=== PATIENT | female | born 1990 | race Caucasian/White ===

== ENCOUNTER 2016-10-19 09:25 | Inpatient (IN) | payer MEDICAID, OTHER ==
[~2016-10-19] VITALS: Ht 160 cm; Wt 77.0 kg
[~2016-10-19 09:25] MED LIST: OLAN5TAB2 PO
[2016-10-19] MEDS ORDERED: DiphenhydrAMINE HCL 50 MG/ML VIAL IM ONE (09:45)
[2016-10-19] MEDS ORDERED: HALOPERIDOL LACTATE 5 MG/ML VIAL IM ONE (09:45)
[2016-10-19] MEDS ORDERED: LORazepam 2 MG/ML VIAL IM ONE (09:45)
[2016-10-19 10:07] LABS: BASOPHILS % (AUTO) 0.3 % (0.0-2.0); EOSINOPHILS % (AUTO) 0.8 % (1.0-6.0); HEMATOCRIT 43.2 % (36-46); HEMOGLOBIN 14.6 g/dL (12.0-16.0); LYMPHOCYTES # (AUTO) 3.2 K/uL (1.0-4.8); LYMPHOCYTES % (AUTO) 21.5 % (22.0-44.0); MEAN CORPUSCULAR HEMOGLOBIN 31.2 pg (26.0-34.0); MEAN CORPUSCULAR HGB CONC 33.8 G/dL (31.0-37.0); MEAN CORPUSCULAR VOLUME 92 fL (80-100); MONOCYTES # (AUTO) 1.3 K/uL (0.1-1.0); MONOCYTES % (AUTO) 8.5 % (2.0-9.0); NEUTROPHILS # (AUTO) 10.2 K/uL (1.8-7.7); NEUTROPHILS % (AUTO) 68.9 % (40.0-70.0); PLATELET COUNT (AUTO) 340 K/uL (150-450); RED BLOOD CELL COUNT(AUTO) 4.69 MIL/uL (4.00-5.20); RED CELL DISTRIBUTION WIDTH 13.5 % (11.5-14.5); WHITE BLOOD COUNT (AUTO) 14.7 K/uL (4.5-11.0)
[2016-10-19 10:18] LABS: ANION GAP 17 mmol/L (8-16); CALCIUM, TOTAL 9.9 mg/dL (8.8-10.5); CARBON DIOXIDE 23 mmol/L (22-29); CHLORIDE 100 mmol/L (98-107); GLOMERULAR FILTR. RATE CALC > 60 mL/min (>60); POTASSIUM 3.4 mmol/L (3.5-5.1); SODIUM SERUM 140 mmol/L (136-145); UREA NITROGEN, BLOOD 10 mg/dL (7-18)
[2016-10-19 10:24] LABS: ALANINE AMINOTRANSFERASE 37 U/L (12-78); ALBUMIN 4.3 g/dL (3.4-5.0); ASPARTATE AMINOTRANSFERASE 33 U/L (15-37); BILIRUBIN,TOTAL 0.7 mg/dL (0.1-1.0); TOTAL PROTEIN, SERUM 8.5 g/dL (6.4-8.2)
[2016-10-19] MEDS ORDERED: HALOPERIDOL 5 MG TABLET PO PRN (12:15)
[2016-10-19] MEDS ORDERED: POTASSIUM CHLORIDE 20 MEQ ER TABLET PO ONE (13:45)
[2016-10-19 14:13] VITALS: BP 104/61
[2016-10-19] MEDS ORDERED: PNEUMOCOCCAL VACCINE POLYVALENT 0.5 ML VIAL [PPSV23] IM ONE (15:15)
[2016-10-19] MEDS ORDERED: INFLUENZA VIRUS VACCINE QVS 2016-17 (3YR+)/PF 60 MCG/0.5 ML SYRINGE IM ONE (15:15)
[2016-10-19] MEDS: OLANZapine 5 MG TABLET PO SCH (17:00)
[2016-10-20] MEDS: OLANZapine 5 MG TABLET PO SCH ×2 (09:00→17:00)
[2016-10-20] MEDS: LORazepam 2 MG TABLET PO PRN (17:57)
[2016-10-20] MEDS ORDERED: IBUPROFEN 400 MG TABLET PO PRN (23:15)
[2016-10-20] MEDS ORDERED: ACETAMINOPHEN 325 MG TABLET PO PRN (23:15)
[2016-10-21 08:08] VITALS: BP 107/74
[2016-10-21] MEDS: OLANZapine 5 MG TABLET PO SCH ×2 (09:38→16:40)
[2016-10-21] MEDS: ZOLPIDEM TARTRATE 10 MG TABLET PO PRN (20:30)
[2016-10-21] MEDS: LORazepam 2 MG TABLET PO PRN (22:15)
[2016-10-22] MEDS: OLANZapine 5 MG TABLET PO SCH ×2 (09:00→16:50)
[2016-10-22] MEDS ORDERED: PALIPERIDONE PALMITATE 156 MG/ML SYRINGE IM ONE (09:00)
[2016-10-22] MEDS: LORazepam 2 MG TABLET PO PRN (17:00)
[2016-10-22 17:45] VITALS: BP 114/75
[2016-10-22] MEDS: ZOLPIDEM TARTRATE 10 MG TABLET PO PRN (21:08)
[2016-10-23] MEDS: OLANZapine 5 MG TABLET PO SCH ×2 (10:15→16:49)
[2016-10-23] MEDS: LORazepam 2 MG TABLET PO PRN ×2 (11:39→18:36)
[2016-10-23 16:33] VITALS: BP 131/78
[2016-10-24 08:16] VITALS: BP 128/77
[2016-10-24] MEDS: OLANZapine 5 MG TABLET PO SCH (08:49)
[2016-10-24 11:18] LABS: APPEARANCE,URINE CLOUDY (CLEAR); GLUCOSE, URINE (UA) NEGATIVE (NEGATIVE); KETONES,URINE NEGATIVE (NEGATIVE); LEUKOCYTE ESTERASE ,URINE MODERATE (NEGATIVE); OCCULT BLOOD,URINE NEGATIVE (NEGATIVE); PH,URINE 5.5 (5.0-8.0); PROTEIN,URINE NEGATIVE (NEGATIVE)
[2016-10-24 11:19] LABS: ADD UA MICROSCOPIC YES
[2016-10-24 11:20] LABS: RBC,URINE None Seen /HPF (0-2)
[2016-10-24 11:21] LABS: SQUAMOUS EPITHELIAL CELL,UR Few /LPF (None Seen)
== END 2016-10-24 14:45 | disposition home or self-care (01) | DRG 750 ==
LOC: EMS 09:25 → 3EC 13:38
PROVIDERS: ATTEND Psychiatry & Neurology Child & Adolescent Psychiatry
DX: F20.0 Paranoid schizophrenia (principal); F31.2 Bipolar disorder, current episode manic severe with psychotic features; J44.9 Chronic obstructive pulmonary disease, unspecified; E78.5 Hyperlipidemia, unspecified; M19.90 Unspecified osteoarthritis, unspecified site; F43.20 Adjustment disorder, unspecified; E87.6 Hypokalemia; D72.829 Elevated white blood cell count, unspecified; F15.229 Other stimulant dependence with intoxication, unspecified; Z78.1 Physical restraint status; Z28.21 Immunization not carried out because of patient refusal; Z79.899 Other long term (current) drug therapy
CPT/HCPCS: 87081; 87086; 96372; 99285; G0480; J1200; J1630; J2060

== ENCOUNTER 2016-10-28 23:15 | Inpatient (IN) | payer MEDICAID, OTHER ==
[~2016-10-28] VITALS: Ht 167.6 cm; Wt 86.4 kg
[2016-10-29] MEDS ORDERED: LORazepam 2 MG/ML VIAL IM ONE
[2016-10-29] MEDS ORDERED: DiphenhydrAMINE HCL 50 MG/ML VIAL IM ONE
[2016-10-29] MEDS ORDERED: HALOPERIDOL LACTATE 5 MG/ML VIAL IM ONE
[2016-10-29 00:50] LABS: BASOPHILS # (AUTO) 0.04 K/uL (0.00-0.20); BASOPHILS % (AUTO) 0.5 % (0.0-2.0); EOSINOPHILS # (AUTO) 0.42 K/uL (0.00-0.70); EOSINOPHILS % (AUTO) 4.69 % (1.0-6.0); HEMATOCRIT 38.1 % (36-46); HEMOGLOBIN 12.8 g/dL (12.0-16.0); LYMPHOCYTES # (AUTO) 3.8 K/uL (1.0-4.8); LYMPHOCYTES % (AUTO) 42.3 % (22.0-44.0); MEAN CORPUSCULAR HEMOGLOBIN 31.3 pg (26.0-34.0); MEAN CORPUSCULAR HGB CONC 33.7 G/dL (31.0-37.0); MEAN CORPUSCULAR VOLUME 93 fL (80-100); MONOCYTES # (AUTO) 0.8 K/uL (0.1-1.0); MONOCYTES % (AUTO) 9.1 % (2.0-9.0); NEUTROPHILS # (AUTO) 3.9 K/uL (1.8-7.7); NEUTROPHILS % (AUTO) 43.4 % (40.0-70.0); PLATELET COUNT (AUTO) 345 K/uL (150-450); RED CELL DISTRIBUTION WIDTH 13.4 % (11.5-14.5)
[2016-10-29 01:00] LABS: ANION GAP 4 mmol/L (8-16); CALCIUM, TOTAL 8.9 mg/dL (8.8-10.5); CARBON DIOXIDE 26 mmol/L (22-29); CHLORIDE 104 mmol/L (98-107); CREATININE 0.61 mg/dL (0.60-1.30); GLOMERULAR FILTR. RATE CALC > 60 mL/min (>60); POTASSIUM 3.3 mmol/L (3.5-5.1); SODIUM SERUM 134 mmol/L (136-145); UREA NITROGEN, BLOOD 9 mg/dL (7-18)
[2016-10-29 01:07] LABS: ALANINE AMINOTRANSFERASE 33 U/L (12-78); ALBUMIN 3.4 g/dL (3.4-5.0); ASPARTATE AMINOTRANSFERASE 15 U/L (15-37); BILIRUBIN,TOTAL 0.2 mg/dL (0.1-1.0); TOTAL PROTEIN, SERUM 6.8 g/dL (6.4-8.2)
[2016-10-29] MEDS ORDERED: HALOPERIDOL 5 MG TABLET PO PRN (03:15)
[2016-10-29] MEDS ORDERED: POTASSIUM CHLORIDE 20 MEQ ER TABLET PO ONE ×2 (06:45→17:30)
[2016-10-29 09:45] VITALS: BP 101/59
[2016-10-29] MEDS ORDERED: INFLUENZA VIRUS VACCINE QVS 2016-17 (3YR+)/PF 60 MCG/0.5 ML SYRINGE IM ONE (14:30)
[2016-10-29] MEDS ORDERED: PNEUMOCOCCAL VACCINE POLYVALENT 0.5 ML VIAL [PPSV23] IM ONE (14:30)
[2016-10-29] MEDS: OLANZapine 5 MG TABLET PO SCH (16:57)
[2016-10-29] MEDS ORDERED: IBUPROFEN 400 MG TABLET PO PRN (17:45)
[2016-10-29] MEDS ORDERED: ALBUTEROL SULFATE HFA 90 MCG/PUFF 8 GM INHALER IH PRN (17:45)
[2016-10-29] MEDS ORDERED: ACETAMINOPHEN 325 MG TABLET PO PRN (17:45)
[2016-10-30 05:54] VITALS: BP 102/60
[2016-10-30] MEDS: OLANZapine 5 MG TABLET PO SCH ×2 (09:00→16:21)
[2016-10-31 08:04] VITALS: BP 101/60
[2016-10-31] MEDS: OLANZapine 5 MG TABLET PO SCH ×2 (10:38→16:15)
[2016-10-31] MEDS: LORazepam 2 MG TABLET PO PRN (18:45)
[2016-11-01 09:02] VITALS: BP 79/47
[2016-11-01] MEDS: OLANZapine 10 MG TABLET PO SCH ×2 (09:56→17:49)
[2016-11-01] MEDS: LORazepam 2 MG TABLET PO PRN (17:49)
[2016-11-01] MEDS: ZOLPIDEM TARTRATE 10 MG TABLET PO PRN (20:47)
[2016-11-02 00:03] VITALS: BP 101/60
[2016-11-02] MEDS: OLANZapine 10 MG TABLET PO SCH ×2 (09:00→18:17)
[2016-11-02 16:14] VITALS: BP 115/68
[2016-11-02] MEDS: LORazepam 2 MG TABLET PO PRN ×2 (16:37→20:59)
[2016-11-02] MEDS: ZOLPIDEM TARTRATE 10 MG TABLET PO PRN (20:59)
[2016-11-03 08:34] VITALS: BP 112/66
[2016-11-03] MEDS: LORazepam 2 MG TABLET PO PRN ×2 (08:55→20:02)
[2016-11-03] MEDS: OLANZapine 10 MG TABLET PO SCH ×2 (08:55→16:12)
[2016-11-03 15:59] VITALS: BP 114/62
[2016-11-03 16:16] VITALS: BP 114/62
[2016-11-03] MEDS: ZOLPIDEM TARTRATE 10 MG TABLET PO PRN (20:34)
[2016-11-04 08:45] VITALS: BP 110/71
[2016-11-04] MEDS: OLANZapine 10 MG TABLET PO SCH ×2 (09:23→16:21)
[2016-11-04 16:16] VITALS: BP 141/69
[2016-11-04] MEDS: LORazepam 2 MG TABLET PO PRN (16:37)
[2016-11-05 08:27] VITALS: BP 109/68
[2016-11-05] MEDS: OLANZapine 10 MG TABLET PO SCH ×2 (09:21→16:01)
[2016-11-05] MEDS: LORazepam 2 MG TABLET PO PRN ×2 (12:41→19:53)
[2016-11-05 16:00] VITALS: BP 104/62
[2016-11-05] MEDS: ZOLPIDEM TARTRATE 10 MG TABLET PO PRN (21:02)
[2016-11-06 08:34] VITALS: BP 116/74
[2016-11-06] MEDS: OLANZapine 10 MG TABLET PO SCH ×2 (09:08→16:23)
[2016-11-06 16:20] VITALS: BP 112/80
[2016-11-06] MEDS: LORazepam 2 MG TABLET PO PRN ×2 (16:23→22:56)
[2016-11-06 16:39] VITALS: BP 100/65
[2016-11-06] MEDS: ZOLPIDEM TARTRATE 10 MG TABLET PO PRN (21:46)
[2016-11-07 08:44] VITALS: BP 110/79
[2016-11-07] MEDS: LORazepam 2 MG TABLET PO PRN (09:02)
[2016-11-07] MEDS: OLANZapine 10 MG TABLET PO SCH (09:02)
== END 2016-11-07 15:50 | disposition home or self-care (01) | DRG 753 ==
LOC: EMS 23:17 → B3A 10-29 06:31
PROVIDERS: ADMIT Psychiatry & Neurology Psychiatry; ATTEND Psychiatry & Neurology Psychiatry
DX: F31.2 Bipolar disorder, current episode manic severe with psychotic features (principal); E87.1 Hypo-osmolality and hyponatremia; E78.5 Hyperlipidemia, unspecified; E87.6 Hypokalemia; F20.9 Schizophrenia, unspecified; J44.9 Chronic obstructive pulmonary disease, unspecified; F17.210 Nicotine dependence, cigarettes, uncomplicated; M47.9 Spondylosis, unspecified; F15.90 Other stimulant use, unspecified, uncomplicated; E66.9 Obesity, unspecified; Z78.1 Physical restraint status; Z28.21 Immunization not carried out because of patient refusal; Z79.899 Other long term (current) drug therapy; Z68.30 Body mass index [BMI] 30.0-30.9, adult
CPT/HCPCS: 87081; 96372; 99285; G0480; J1200; J1630; J2060

== ENCOUNTER 2017-12-09 09:03 | Inpatient (IN) | payer MEDICAID, OTHER ==
[~2017-12-09] VITALS: Ht 172.7 cm; Wt 60.0 kg
[2017-12-09] MEDS ORDERED: DiphenhydrAMINE HCL 50 MG/ML VIAL IM ONE (09:30)
[2017-12-09] MEDS ORDERED: LORazepam 2 MG/ML VIAL IM ONE (09:30)
[2017-12-09] MEDS ORDERED: HALOPERIDOL LACTATE 5 MG/ML VIAL IM ONE (09:30)
[2017-12-09] MEDS ORDERED: ZOLPIDEM TARTRATE 10 MG TABLET PO PRN (10:15)
[2017-12-09] MEDS ORDERED: HALOPERIDOL 5 MG TABLET PO PRN (10:15)
[2017-12-09] MEDS ORDERED: LORazepam 2 MG TABLET PO PRN (10:15)
[2017-12-09 10:50] LABS: BASOPHILS % (AUTO) 0.6 % (0.0-2.0); EOSINOPHILS % (AUTO) 0.9 % (1.0-6.0); HEMATOCRIT 43.6 % (36-46); HEMOGLOBIN 14.8 g/dL (12.0-16.0); LYMPHOCYTES # (AUTO) 2.8 K/uL (1.0-4.8); LYMPHOCYTES % (AUTO) 22.3 % (22.0-44.0); MEAN CORPUSCULAR HEMOGLOBIN 31.5 pg (26.0-34.0); MEAN CORPUSCULAR HGB CONC 33.9 G/dL (31.0-37.0); MEAN CORPUSCULAR VOLUME 93 fL (80-100); MONOCYTES # (AUTO) 1.4 K/uL (0.1-1.0); NEUTROPHILS # (AUTO) 8.1 K/uL (1.8-7.7); NEUTROPHILS % (AUTO) 65.2 % (40.0-70.0); PLATELET COUNT (AUTO) 321 K/uL (150-450); RED CELL DISTRIBUTION WIDTH 13.8 % (11.5-14.5)
[2017-12-09 11:07] LABS: ANION GAP 13 mmol/L (8-16); CALCIUM, TOTAL 9.3 mg/dL (8.8-10.5); CARBON DIOXIDE 24 mmol/L (22-29); CHLORIDE 104 mmol/L (98-107); CREATININE 0.74 mg/dL (0.60-1.30); GLOMERULAR FILTR. RATE CALC > 60 mL/min (>60); GLUCOSE,RANDOM 89 mg/dL (70-110); POTASSIUM 3.2 mmol/L (3.5-5.1); SODIUM SERUM 141 mmol/L (136-145); UREA NITROGEN, BLOOD 20 mg/dL (7-18)
[2017-12-09 11:13] LABS: ALANINE AMINOTRANSFERASE 25 U/L (12-78); ALKALINE PHOSPHATASE 71 U/L (46-116); ASPARTATE AMINOTRANSFERASE 21 U/L (15-37); BILIRUBIN,TOTAL 0.8 mg/dL (0.1-1.0); TOTAL PROTEIN, SERUM 7.1 g/dL (6.4-8.2)
[2017-12-09] MEDS ORDERED: POTASSIUM CHLORIDE 10% 40 MEQ/30 ML LIQUID UDCUP PO ONE (11:15)
[2017-12-09 11:48] VITALS: BP 103/64
== END 2017-12-09 23:00 | disposition short-term general hospital (02) | DRG 753 ==
LOC: EMS 09:04 → B3A 12:01
PROVIDERS: ADMIT Psychiatry & Neurology Psychiatry; ATTEND Psychiatry & Neurology Psychiatry
DX: F31.2 Bipolar disorder, current episode manic severe with psychotic features (principal); I95.9 Hypotension, unspecified; E87.6 Hypokalemia; F17.210 Nicotine dependence, cigarettes, uncomplicated; Z79.899 Other long term (current) drug therapy
CPT/HCPCS: G0480; J1200; J1630; J2060

== ENCOUNTER 2018-10-10 00:54 | Emergency (ER) | payer MEDICAID ==
[~2018-10-10] VITALS: Ht 162.6 cm; Wt 56.4 kg
[2018-10-10] MEDS ORDERED: RISP0.5T19 PO (01:02)
[2018-10-10 01:27] LABS: BASOPHILS % (AUTO) 0.6 % (0.0-2.0); EOSINOPHILS % (AUTO) 1.1 % (1.0-6.0); HEMATOCRIT 38.6 % (36-46); HEMOGLOBIN 12.8 g/dL (12.0-16.0); LYMPHOCYTES # (AUTO) 3.3 K/uL (1.0-4.8); LYMPHOCYTES % (AUTO) 25.8 % (22.0-44.0); MEAN CORPUSCULAR HEMOGLOBIN 31.2 pg (26.0-34.0); MEAN CORPUSCULAR HGB CONC 33.2 G/dL (31.0-37.0); MEAN CORPUSCULAR VOLUME 94 fL (80-100); MONOCYTES # (AUTO) 1.1 K/uL (0.1-1.0); MONOCYTES % (AUTO) 8.8 % (2.0-9.0); NEUTROPHILS # (AUTO) 8.1 K/uL (1.8-7.7); NEUTROPHILS % (AUTO) 63.7 % (40.0-70.0); PLATELET COUNT (AUTO) 301 K/uL (150-450); RED CELL DISTRIBUTION WIDTH 13.4 % (11.5-14.5)
[2018-10-10 01:42] LABS: ANION GAP 12 mmol/L (8-16); CALCIUM, TOTAL 9.5 mg/dL (8.8-10.5); CARBON DIOXIDE 24 mmol/L (22-29); CHLORIDE 101 mmol/L (98-107); GLOMERULAR FILTR. RATE CALC > 60 mL/min (>60); GLUCOSE,RANDOM 99 mg/dL (70-110); POTASSIUM 3.8 mmol/L (3.5-5.1); SODIUM SERUM 137 mmol/L (136-145); UREA NITROGEN, BLOOD 21 mg/dL (7-18)
[2018-10-10 01:45] VITALS: BP 110/70
[2018-10-10 01:53] LABS: ALANINE AMINOTRANSFERASE 30 U/L (12-78); ALBUMIN 3.8 g/dL (3.4-5.0); ALKALINE PHOSPHATASE 65 U/L (46-116); ASPARTATE AMINOTRANSFERASE 33 U/L (15-37); BILIRUBIN,TOTAL 0.7 mg/dL (0.1-1.0); HCG,QUANTITATIVE < 1 mIU/mL (0-6); TOTAL PROTEIN, SERUM 7.3 g/dL (6.4-8.2)
[2018-10-10] MEDS ORDERED: LORazepam 1 MG TABLET PO ONE (03:45)
[2018-10-10] MEDS ORDERED: RisperiDONE 1 MG TABLET PO ONE (03:45)
== END 2018-10-10 05:18 | disposition home or self-care (01) ==
LOC: EMS 00:54
DX: F41.9 Anxiety disorder, unspecified (principal); F15.10 Other stimulant abuse, uncomplicated; F31.9 Bipolar disorder, unspecified; F17.210 Nicotine dependence, cigarettes, uncomplicated; Z59.0 Homelessness
CPT/HCPCS: 36415; 80053; 84702; 85025; 99284; 99406; G0480

== ENCOUNTER 2018-11-15 12:35 | Inpatient (IN) | payer MEDICAID ==
[~2018-11-15] VITALS: Ht 162.6 cm; Wt 66.5 kg
[~2018-11-15 12:35] MED LIST changes: -OLAN5TAB2 PO; +RISP0.5T19 PO
[2018-11-15] MEDS ORDERED: ZOLPIDEM TARTRATE 10 MG TABLET PO PRN (16:45)
[2018-11-15] MEDS ORDERED: IBUPROFEN 400 MG TABLET PO PRN (17:00)
[2018-11-15] MEDS ORDERED: ACETAMINOPHEN 325 MG TABLET PO PRN (17:00)
[2018-11-16 10:55] VITALS: BP 113/79
[2018-11-16] MEDS ORDERED: PNEUMOCOCCAL VACCINE POLYVALENT 0.5 ML VIAL [PPSV23] IM ONE (12:15)
[2018-11-16] MEDS ORDERED: MAGNESIUM HYDROXIDE SUSPENSION 30 ML UDCUP PO PRN ×2 (14:30→15:00)
[2018-11-16] MEDS ORDERED: NICOTINE 14 MG/24 HOUR PATCH TD PRN ×2 (14:30→15:00)
[2018-11-16] MEDS ORDERED: IBUPROFEN 400 MG TABLET PO PRN ×2 (14:30→15:00)
[2018-11-16] MEDS ORDERED: LOPERAMIDE HCL 2 MG CAPSULE PO PRN ×2 (14:30→15:00)
[2018-11-16] MEDS ORDERED: DOCUSATE SODIUM 100 MG CAPSULE PO PRN ×2 (14:30→15:00)
[2018-11-16] MEDS ORDERED: ONDANSETRON HCL 4 MG TABLET PO PRN ×2 (14:30→15:00)
[2018-11-16] MEDS ORDERED: PETROLATUM,WHITE 71 GM JELLY TP PRN ×2 (14:30→15:00)
[2018-11-16] MEDS ORDERED: GuaiFENesin/D-METHORPHAN [SUGAR-FREE] 200-20MG/10 ML SYRUP UDCUP PO PRN ×2 (14:30→15:00)
[2018-11-16] MEDS ORDERED: ACETAMINOPHEN 325 MG TABLET PO PRN ×2 (14:30→15:00)
[2018-11-16] MEDS ORDERED: MAG HYDROX/AL HYDROX/SIMETH ES 30 ML SUSPENSION UDCUP PO PRN ×2 (14:30→15:00)
[2018-11-16] MEDS ORDERED: CloNIDine HCL 0.1 MG TABLET PO PRN ×2 (14:30→15:00)
[2018-11-16] MEDS ORDERED: ALBUTEROL SULFATE HFA 90 MCG/PUFF 8 GM INHALER IH PRN ×2 (14:30→15:00)
[2018-11-16 17:04] VITALS: BP 115/79
[2018-11-16] MEDS: LORazepam 2 MG TABLET PO PRN (17:06)
[2018-11-16] MEDS: OLANZapine 10 MG TABLET PO SCH (17:06)
[2018-11-17 07:00] VITALS: BP 86/40
[2018-11-17 08:13] VITALS: BP 76/38
[2018-11-17] MEDS: OLANZapine 10 MG TABLET PO SCH (08:35)
[2018-11-17] MEDS ORDERED: OLAN10TA3 PO (09:47)
[2018-11-17 15:03] VITALS: BP 103/62
[2018-11-17 16:04] VITALS: BP 108/66
[2018-11-17] MEDS: OLANZapine 5 MG TABLET PO SCH (17:06)
[2018-11-18 08:09] VITALS: BP 108/61
[2018-11-18] MEDS: OLANZapine 5 MG TABLET PO SCH ×2 (09:29→17:32)
[2018-11-18 16:08] VITALS: BP 109/64
[2018-11-18] MEDS: HALOPERIDOL 5 MG TABLET PO PRN (17:32)
[2018-11-18] MEDS: LORazepam 2 MG TABLET PO PRN (17:33)
[2018-11-19 07:16] VITALS: BP 101/67
[2018-11-19] MEDS: OLANZapine 5 MG TABLET PO SCH (08:58)
[2018-11-19 16:14] VITALS: BP 102/55
[2018-11-19] MEDS: OLANZapine 7.5 MG TABLET PO SCH (16:24)
[2018-11-19] MEDS: LORazepam 2 MG TABLET PO PRN (18:38)
[2018-11-20 07:03] VITALS: BP 101/62
[2018-11-20 08:16] VITALS: BP 116/74
[2018-11-20] MEDS: OLANZapine 7.5 MG TABLET PO SCH (08:48)
[2018-11-20] MEDS: LORazepam 2 MG TABLET PO PRN ×2 (10:48→16:54)
[2018-11-20 16:28] VITALS: BP 131/68
[2018-11-20] MEDS: OLANZapine 10 MG TABLET PO SCH (16:54)
[2018-11-21 06:34] VITALS: BP 128/78
[2018-11-21 08:15] VITALS: BP 116/72
[2018-11-21] MEDS: LORazepam 2 MG TABLET PO PRN ×2 (08:34→16:50)
[2018-11-21] MEDS: HALOPERIDOL 5 MG TABLET PO PRN (08:34)
[2018-11-21] MEDS: OLANZapine 10 MG TABLET PO SCH ×2 (08:34→16:50)
[2018-11-21 16:12] VITALS: BP 119/61
[2018-11-22 07:03] VITALS: BP 115/70
[2018-11-22 08:12] VITALS: BP 101/68
[2018-11-22] MEDS: OLANZapine 10 MG TABLET PO SCH ×2 (09:03→16:35)
[2018-11-22 16:32] VITALS: BP 120/73
[2018-11-22] MEDS: LORazepam 2 MG TABLET PO PRN (16:35)
[2018-11-23 06:29] VITALS: BP 109/65
[2018-11-23 08:07] VITALS: BP 100/52
[2018-11-23] MEDS: OLANZapine 10 MG TABLET PO SCH ×2 (09:06→16:05)
[2018-11-23 16:05] VITALS: BP 109/62
[2018-11-23] MEDS: LORazepam 2 MG TABLET PO PRN (18:03)
[2018-11-24 06:07] VITALS: BP 117/69
[2018-11-24] MEDS: OLANZapine 10 MG TABLET PO SCH ×2 (08:15→17:45)
[2018-11-24 08:24] VITALS: BP 110/69
[2018-11-24] MEDS: LORazepam 2 MG TABLET PO PRN ×2 (12:46→17:44)
[2018-11-24 16:20] VITALS: BP 112/69
[2018-11-25 06:41] VITALS: BP 110/72
[2018-11-25] MEDS: OLANZapine 10 MG TABLET PO SCH ×2 (08:42→16:09)
[2018-11-25] MEDS: LORazepam 2 MG TABLET PO PRN (16:09)
[2018-11-25 16:29] VITALS: BP 108/69
[2018-11-25] MEDS ORDERED: ZOLPIDEM TARTRATE 10 MG TABLET PO PRN (18:15)
[2018-11-26 00:18] VITALS: BP 101/68
[2018-11-26] MEDS: OLANZapine 10 MG TABLET PO SCH ×2 (08:04→16:18)
[2018-11-26 08:29] VITALS: BP 111/74
[2018-11-26 16:02] VITALS: BP 114/63
[2018-11-26] MEDS: LORazepam 2 MG TABLET PO PRN (16:18)
[2018-11-27 06:57] VITALS: BP 117/67
[2018-11-27 08:10] VITALS: BP 119/68
[2018-11-27] MEDS: OLANZapine 10 MG TABLET PO SCH ×2 (09:44→17:11)
[2018-11-27] MEDS: LORazepam 2 MG TABLET PO PRN (13:08)
[2018-11-27 16:06] VITALS: BP 112/65
[2018-11-27] MEDS: HALOPERIDOL 5 MG TABLET PO PRN (16:39)
[2018-11-28 06:40] VITALS: BP 101/63
[2018-11-28] MEDS: OLANZapine 10 MG TABLET PO SCH ×2 (08:30→16:07)
[2018-11-28 09:20] VITALS: BP 114/80
[2018-11-28 15:49] VITALS: BP 110/60
[2018-11-28] MEDS: LORazepam 2 MG TABLET PO PRN (16:07)
[2018-11-28 16:53] VITALS: BP 110/60
[2018-11-29 05:41] VITALS: BP 117/63
[2018-11-29 08:00] VITALS: BP 102/64
[2018-11-29] MEDS: OLANZapine 10 MG TABLET PO SCH (08:22)
[2018-11-29] MEDS: LORazepam 2 MG TABLET PO PRN (10:12)
[2018-11-29] MEDS ORDERED: OLAN10TA3 PO (10:59)
== END 2018-11-29 13:10 | disposition home or self-care (01) | DRG 750 ==
LOC: EMS 12:38 → B3A 11-16 06:00
PROVIDERS: ADMIT Psychiatry & Neurology Psychiatry; ATTEND Psychiatry & Neurology Psychiatry
DX: F25.0 Schizoaffective disorder, bipolar type (principal); I95.9 Hypotension, unspecified; R45.851 Suicidal ideations; D64.9 Anemia, unspecified; E78.5 Hyperlipidemia, unspecified; F15.90 Other stimulant use, unspecified, uncomplicated; F41.9 Anxiety disorder, unspecified; I10 Essential (primary) hypertension; J44.9 Chronic obstructive pulmonary disease, unspecified; Z53.20 Procedure and treatment not carried out because of patient's decision for unspecified reasons; F17.210 Nicotine dependence, cigarettes, uncomplicated; Z91.19 Patient's noncompliance with other medical treatment and regimen; Z28.21 Immunization not carried out because of patient refusal; Z79.899 Other long term (current) drug therapy; Z88.8 Allergy status to other drugs, medicaments and biological substances

== ENCOUNTER 2018-11-17 09:18 | Emergency (ER) | payer MEDICAID ==
[~2018-11-17] VITALS: Ht 160 cm; Wt 59.1 kg
[2018-11-17] MEDS ORDERED: OLAN10TA3 PO (09:47)
[2018-11-17 10:33] LABS: BASOPHILS % (AUTO) 0.8 % (0.0-2.0); EOSINOPHILS % (AUTO) 1.9 % (1.0-6.0); HEMATOCRIT 35.7 % (36-46); HEMOGLOBIN 11.9 g/dL (12.0-16.0); LYMPHOCYTES # (AUTO) 2.5 K/uL (1.0-4.8); LYMPHOCYTES % (AUTO) 38.8 % (22.0-44.0); MEAN CORPUSCULAR HGB CONC 33.5 G/dL (31.0-37.0); MEAN CORPUSCULAR VOLUME 93 fL (80-100); MONOCYTES # (AUTO) 0.6 K/uL (0.1-1.0); MONOCYTES % (AUTO) 8.7 % (2.0-9.0); NEUTROPHILS # (AUTO) 3.2 K/uL (1.8-7.7); NEUTROPHILS % (AUTO) 49.8 % (40.0-70.0); PLATELET COUNT (AUTO) 335 K/uL (150-450); RED BLOOD CELL COUNT(AUTO) 3.85 MIL/uL (4.00-5.20); RED CELL DISTRIBUTION WIDTH 14.5 % (11.5-14.5)
[2018-11-17 10:42] LABS: ANION GAP 5 mmol/L (8-16); CARBON DIOXIDE 29 mmol/L (22-29); CHLORIDE 109 mmol/L (98-107); CREATININE 0.81 mg/dL (0.60-1.30); GLOMERULAR FILTR. RATE CALC > 60 mL/min (>60); GLUCOSE,RANDOM 71 mg/dL (70-110); POTASSIUM 4.2 mmol/L (3.5-5.1); SODIUM SERUM 143 mmol/L (136-145); UREA NITROGEN, BLOOD 17 mg/dL (7-18)
[2018-11-17 10:53] LABS: ALANINE AMINOTRANSFERASE 18 U/L (12-78); ALKALINE PHOSPHATASE 56 U/L (46-116); ASPARTATE AMINOTRANSFERASE 13 U/L (15-37); BILIRUBIN,TOTAL 0.2 mg/dL (0.1-1.0); HCG,QUANTITATIVE < 1 mIU/mL (0-6)
[2018-11-17 14:50] VITALS: BP 115/59
== END 2018-11-17 14:55 | disposition home or self-care (01) ==
LOC: EMS 09:18
DX: F31.9 Bipolar disorder, unspecified (principal); I95.9 Hypotension, unspecified; F17.210 Nicotine dependence, cigarettes, uncomplicated; F15.10 Other stimulant abuse, uncomplicated; Z79.899 Other long term (current) drug therapy

== ENCOUNTER 2018-12-10 16:01 | Inpatient (IN) | payer MEDICAID ==
[~2018-12-10 16:01] MED LIST changes: +OLAN10TA3 PO; -RISP0.5T19 PO
[2018-12-11 02:11] VITALS: BP 120/66
[2018-12-11 09:48] VITALS: BP 103/70
[2018-12-11] MEDS: OLANZapine 10 MG TABLET PO SCH (18:14)
[2018-12-12 01:45] VITALS: BP 105/67
[2018-12-12] MEDS: OLANZapine 10 MG TABLET PO SCH ×2 (08:58→17:41)
[2018-12-12 16:02] VITALS: BP 100/59
[2018-12-13 05:52] VITALS: BP 103/62
[2018-12-13 08:08] VITALS: BP 109/72
[2018-12-13] MEDS: OLANZapine 10 MG TABLET PO SCH ×2 (08:25→16:19)
[2018-12-13] MEDS: LORazepam 1 MG TABLET PO PRN (16:19)
[2018-12-13 16:22] VITALS: BP 116/78
[2018-12-14 05:22] VITALS: BP 110/72
[2018-12-14] MEDS: OLANZapine 10 MG TABLET PO SCH ×2 (08:12→16:24)
[2018-12-14 08:14] VITALS: BP 118/69
[2018-12-14] MEDS: SERTRALINE HCL 50 MG TABLET PO SCH (13:05)
[2018-12-15 00:12] VITALS: BP 116/70
[2018-12-15] MEDS: OLANZapine 10 MG TABLET PO SCH ×2 (08:11→17:06)
[2018-12-15] MEDS: SERTRALINE HCL 50 MG TABLET PO SCH (08:11)
[2018-12-15 09:00] VITALS: BP 104/60
[2018-12-15 16:09] VITALS: BP 107/64
[2018-12-15] MEDS: LORazepam 1 MG TABLET PO PRN (17:06)
[2018-12-15] MEDS: HALOPERIDOL 5 MG TABLET PO PRN (17:07)
[2018-12-15] MEDS: ZOLPIDEM TARTRATE 10 MG TABLET PO PRN (20:52)
[2018-12-16 07:16] VITALS: BP 109/67
[2018-12-16 08:04] VITALS: BP 110/69
[2018-12-16] MEDS: OLANZapine 10 MG TABLET PO SCH ×2 (09:05→16:22)
[2018-12-16] MEDS: SERTRALINE HCL 100 MG TABLET PO SCH (09:05)
[2018-12-16 16:03] VITALS: BP 107/66
[2018-12-16] MEDS: LORazepam 1 MG TABLET PO PRN (16:22)
[2018-12-16] MEDS: HALOPERIDOL 5 MG TABLET PO PRN (16:22)
[2018-12-16] MEDS: ZOLPIDEM TARTRATE 10 MG TABLET PO PRN (20:38)
[2018-12-17 06:13] VITALS: BP 102/63
[2018-12-17 08:13] VITALS: BP 100/70
[2018-12-17] MEDS: SERTRALINE HCL 100 MG TABLET PO SCH (08:15)
[2018-12-17] MEDS: OLANZapine 10 MG TABLET PO SCH ×2 (08:15→16:21)
[2018-12-17 16:34] VITALS: BP 100/60
[2018-12-17] MEDS: LORazepam 1 MG TABLET PO PRN (18:09)
[2018-12-17] MEDS: ZOLPIDEM TARTRATE 10 MG TABLET PO PRN (21:01)
[2018-12-18 04:47] VITALS: BP 104/65
[2018-12-18 08:18] VITALS: BP 100/55
[2018-12-18] MEDS: SERTRALINE HCL 100 MG TABLET PO SCH (08:38)
[2018-12-18] MEDS: OLANZapine 10 MG TABLET PO SCH (08:38)
[2018-12-18] MEDS ORDERED: SERTRALINE HCL 50 MG TABLET PO ONE (11:30)
[2018-12-18 17:14] VITALS: BP 110/65
[2018-12-18] MEDS: LORazepam 1 MG TABLET PO PRN (17:30)
[2018-12-18] MEDS ORDERED: PALIPERIDONE 3 MG ER TABLET PO SCH (21:00)
[2018-12-18] MEDS: ZOLPIDEM TARTRATE 10 MG TABLET PO PRN (21:04)
[2018-12-19 06:08] VITALS: BP 105/62
[2018-12-19 08:15] VITALS: BP 119/78
[2018-12-19] MEDS: SERTRALINE HCL 100 MG TABLET PO SCH (08:21)
[2018-12-19] MEDS: LORazepam 1 MG TABLET PO PRN ×2 (08:27→16:38)
[2018-12-19 16:38] VITALS: BP 112/68
[2018-12-19] MEDS ORDERED: PALIPERIDONE 6 MG ER TABLET PO SCH (21:00)
[2018-12-19] MEDS: ZOLPIDEM TARTRATE 10 MG TABLET PO PRN (21:12)
[2018-12-20 04:27] VITALS: BP 115/72
[2018-12-20] MEDS: SERTRALINE HCL 100 MG TABLET PO SCH (08:07)
[2018-12-20 08:18] VITALS: BP 114/53
[2018-12-20 08:25] VITALS: BP 112/62
[2018-12-20] MEDS: LORazepam 1 MG TABLET PO PRN ×2 (08:30→14:37)
[2018-12-20 16:22] VITALS: BP 116/63
[2018-12-20] MEDS ORDERED: PALIPERIDONE 3 MG ER TABLET PO SCH (21:00)
[2018-12-20] MEDS: ZOLPIDEM TARTRATE 10 MG TABLET PO PRN (21:25)
[2018-12-21 06:31] VITALS: BP 103/63
[2018-12-21 08:28] VITALS: BP 104/66
[2018-12-21] MEDS: SERTRALINE HCL 100 MG TABLET PO SCH (09:38)
[2018-12-21] MEDS: LORazepam 1 MG TABLET PO PRN ×2 (13:34→17:59)
[2018-12-21 16:17] VITALS: BP 100/60
[2018-12-21] MEDS: PALIPERIDONE 6 MG ER TABLET PO SCH (20:28)
[2018-12-21] MEDS: ZOLPIDEM TARTRATE 10 MG TABLET PO PRN (20:29)
[2018-12-21] MEDS ORDERED: PALIPERIDONE 6 MG ER TABLET PO SCH (21:00)
[2018-12-22 06:22] VITALS: BP 102/68
[2018-12-22 08:04] VITALS: BP 116/72
[2018-12-22] MEDS ORDERED: PALIPERIDONE PALMITATE 234 MG/1.5 ML SYRINGE IM ONE (09:00)
[2018-12-22] MEDS: SERTRALINE HCL 100 MG TABLET PO SCH (09:03)
[2018-12-22] MEDS: LORazepam 1 MG TABLET PO PRN ×2 (13:21→18:02)
[2018-12-22 17:24] VITALS: BP 107/70
[2018-12-22] MEDS: PALIPERIDONE 6 MG ER TABLET PO SCH (20:43)
[2018-12-22] MEDS: ZOLPIDEM TARTRATE 10 MG TABLET PO PRN (20:43)
[2018-12-23 06:29] VITALS: BP 126/62
[2018-12-23] MEDS ORDERED: PALI6 PO (07:53)
[2018-12-23] MEDS ORDERED: SERT100T12 PO (07:53)
[2018-12-23 08:13] VITALS: BP 100/59
[2018-12-23] MEDS: SERTRALINE HCL 100 MG TABLET PO SCH (09:24)
== END 2018-12-23 14:35 | disposition home or self-care (01) | DRG 750 ==
LOC: B3A 12-11 00:30
PROVIDERS: ADMIT Psychiatry & Neurology Psychiatry; ATTEND Psychiatry & Neurology Psychiatry
DX: F25.0 Schizoaffective disorder, bipolar type (principal); D64.9 Anemia, unspecified; E78.5 Hyperlipidemia, unspecified; F15.90 Other stimulant use, unspecified, uncomplicated; F17.200 Nicotine dependence, unspecified, uncomplicated; I10 Essential (primary) hypertension; J44.9 Chronic obstructive pulmonary disease, unspecified; F41.9 Anxiety disorder, unspecified; R45.87 Impulsiveness; Z28.21 Immunization not carried out because of patient refusal
CPT/HCPCS: 90686

== ENCOUNTER 2019-08-28 14:15 | Inpatient (IN) | payer MEDICAID, OTHER ==
[~2019-08-28] VITALS: Ht 162.6 cm; Wt 72.6 kg
[~2019-08-28 14:15] MED LIST changes: -OLAN10TA3 PO; +PALI6 PO; +SERT100T12 PO
[2019-08-28] MEDS ORDERED: PALI234D IM (14:35)
[2019-08-28] MEDS ORDERED: HALOPERIDOL 5 MG TABLET PO ONE (14:45)
[2019-08-28] MEDS ORDERED: LORazepam 2 MG TABLET PO ONE (14:45)
[2019-08-28] MEDS ORDERED: HALOPERIDOL 5 MG TABLET PO PRN (15:15)
[2019-08-28 17:51] VITALS: BP 109/66
[2019-08-28] MEDS ORDERED: INFLUENZA VIRUS VACCINE QVS 2019-20 (3YR+)/PF 60 MCG/0.5 ML SYRINGE IM ONE (19:00)
[2019-08-28] MEDS ORDERED: ALBUTEROL SULFATE HFA 90 MCG/PUFF 8 GM INHALER IH PRN (20:00)
[2019-08-28] MEDS ORDERED: OMEPRAZOLE 20 MG CAPSULE PO PRN (20:00)
[2019-08-28] MEDS ORDERED: ACETAMINOPHEN 325 MG TABLET PO PRN (20:00)
[2019-08-28] MEDS ORDERED: BACITRACIN 28.4 GM OINTMENT TP PRN (20:00)
[2019-08-28] MEDS ORDERED: LOPERAMIDE HCL 2 MG CAPSULE PO PRN (20:00)
[2019-08-28] MEDS ORDERED: CloNIDine HCL 0.1 MG TABLET PO PRN (20:00)
[2019-08-28] MEDS ORDERED: ONDANSETRON HCL 4 MG TABLET PO PRN (20:00)
[2019-08-28] MEDS ORDERED: DOCUSATE SODIUM 100 MG CAPSULE PO PRN (20:00)
[2019-08-28] MEDS ORDERED: PETROLATUM,WHITE 28 GM JELLY TP PRN (20:00)
[2019-08-28] MEDS ORDERED: MAGNESIUM HYDROXIDE SUSPENSION 30 ML UDCUP PO PRN (20:00)
[2019-08-28] MEDS ORDERED: BENZOCAINE/MENTHOL LOZENGE MM PRN (20:00)
[2019-08-28] MEDS ORDERED: IBUPROFEN 600 MG TABLET PO PRN (20:00)
[2019-08-28] MEDS ORDERED: MAG HYDROX/AL HYDROX/SIMETH ES 30 ML SUSPENSION UDCUP PO PRN (20:00)
[2019-08-28] MEDS: PALIPERIDONE 6 MG ER TABLET PO SCH (20:39)
[2019-08-29] MEDS: LORazepam 2 MG TABLET PO PRN (08:15)
[2019-08-29] MEDS: SERTRALINE HCL 100 MG TABLET PO SCH (08:15)
[2019-08-29 09:29] VITALS: BP 111/73
[2019-08-29 16:02] VITALS: BP 107/72
[2019-08-29] MEDS: PALIPERIDONE 6 MG ER TABLET PO SCH (20:18)
[2019-08-30 05:19] VITALS: BP 102/65
[2019-08-30] MEDS: SERTRALINE HCL 100 MG TABLET PO SCH (08:07)
[2019-08-30 08:15] VITALS: BP 118/69
[2019-08-30] MEDS: LORazepam 2 MG TABLET PO PRN ×2 (08:22→16:03)
[2019-08-30 16:01] VITALS: BP 120/70
[2019-08-30] MEDS: PALIPERIDONE 6 MG ER TABLET PO SCH (20:28)
[2019-08-31 05:33] VITALS: BP 108/65
[2019-08-31 08:07] VITALS: BP 100/55
[2019-08-31] MEDS: SERTRALINE HCL 100 MG TABLET PO SCH (08:12)
[2019-08-31] MEDS: LORazepam 2 MG TABLET PO PRN (08:12)
[2019-08-31 16:00] VITALS: BP 106/63
[2019-08-31] MEDS: PALIPERIDONE 6 MG ER TABLET PO SCH (20:01)
[2019-08-31] MEDS: ZOLPIDEM TARTRATE 10 MG TABLET PO PRN (21:16)
[2019-09-01 00:29] VITALS: BP 116/60
[2019-09-01 08:17] VITALS: BP 106/56
[2019-09-01] MEDS: SERTRALINE HCL 100 MG TABLET PO SCH (08:17)
[2019-09-01] MEDS: LORazepam 2 MG TABLET PO PRN (14:41)
[2019-09-01 16:07] VITALS: BP 115/72
[2019-09-01] MEDS: PALIPERIDONE 6 MG ER TABLET PO SCH (21:01)
[2019-09-01] MEDS: ZOLPIDEM TARTRATE 10 MG TABLET PO PRN (21:32)
[2019-09-02 06:28] VITALS: BP 129/76
[2019-09-02] MEDS: SERTRALINE HCL 100 MG TABLET PO SCH (08:01)
[2019-09-02 08:25] VITALS: BP 100/51
[2019-09-02] MEDS ORDERED: PALI3 PO (12:56)
== END 2019-09-02 14:30 | disposition home or self-care (01) | DRG 750 ==
LOC: EMS 14:17 → B3A 15:38
PROVIDERS: ADMIT Psychiatry & Neurology Psychiatry; ATTEND Psychiatry & Neurology Psychiatry
DX: F25.0 Schizoaffective disorder, bipolar type (principal); R45.851 Suicidal ideations; F41.9 Anxiety disorder, unspecified; K59.00 Constipation, unspecified; G47.00 Insomnia, unspecified; F17.210 Nicotine dependence, cigarettes, uncomplicated; Z56.0 Unemployment, unspecified; Z88.8 Allergy status to other drugs, medicaments and biological substances; Z79.899 Other long term (current) drug therapy
CPT/HCPCS: 90686; J3535

== ENCOUNTER 2020-07-04 11:54 | Emergency (ER) | payer MEDICAID, OTHER ==
[~2020-07-04] VITALS: Ht 167.6 cm; Wt 113.0 kg
[~2020-07-04 11:54] MED LIST changes: +PALI3TAB14 PO; -PALI6 PO
[2020-07-04 12:02] VITALS: BP 121/81
[2020-07-04] MEDS ORDERED: PALI6TAB15 PO (13:13)
[2020-07-04] MEDS: LORazepam 0.5 MG TABLET PO ONE (13:28)
== END 2020-07-04 13:27 | disposition home or self-care (01) ==
LOC: EMS 11:55
DX: F20.9 Schizophrenia, unspecified (principal); F41.9 Anxiety disorder, unspecified; F17.210 Nicotine dependence, cigarettes, uncomplicated; F15.90 Other stimulant use, unspecified, uncomplicated
CPT/HCPCS: Z7502; Z7610

== ENCOUNTER 2020-10-13 20:52 | Emergency (ER) | payer OTHER ==
[~2020-10-13] VITALS: Ht 165.1 cm; Wt 68.2 kg
[~2020-10-13 20:52] MED LIST changes: -PALI3TAB14 PO; +PALI6TAB15 PO
[2020-10-13 20:55] VITALS: BP 140/80
== END 2020-10-13 21:30 | disposition left against medical advice (07) ==
LOC: EMS 20:55
DX: F22 Delusional disorders (principal); Z53.21 Procedure and treatment not carried out due to patient leaving prior to being seen by health care provider

== ENCOUNTER 2021-08-21 14:26 | Emergency (ER) | payer OTHER ==
[~2021-08-21] VITALS: Ht 162.6 cm; Wt 77.3 kg
[~2021-08-21 14:26] MED LIST changes: +SERT-162 PO; -SERT100T12 PO
[2021-08-21 14:46] VITALS: BP 120/65
== END 2021-08-21 17:01 | disposition left against medical advice (07) ==
LOC: EMS 14:26
DX: R07.89 Other chest pain (principal); F17.210 Nicotine dependence, cigarettes, uncomplicated; Z79.899 Other long term (current) drug therapy
CPT/HCPCS: 93005; 99283

== ENCOUNTER 2021-09-04 08:10 | Emergency (ER) | payer OTHER ==
[~2021-09-04] VITALS: Ht 162.6 cm; Wt 72.7 kg
[2021-09-04] MEDS ORDERED: HALOPERIDOL 5 MG TABLET PO ONE (08:45)
[2021-09-04] MEDS ORDERED: LORazepam 1 MG TABLET PO ONE (08:45)
[2021-09-04] MEDS ORDERED: SERTRALINE HCL 100 MG TABLET PO ONE (08:45)
[2021-09-04 08:58] LABS: BASOPHILS % (AUTO) 0.6 % (0.0-2.0); EOSINOPHILS % (AUTO) 2.2 % (1.0-6.0); HEMATOCRIT 40.5 % (36-46); HEMOGLOBIN 13.9 g/dL (12.0-16.0); LYMPHOCYTES # (AUTO) 2.4 K/uL (1.0-4.8); LYMPHOCYTES % (AUTO) 33.2 % (22.0-44.0); MEAN CORPUSCULAR HEMOGLOBIN 32.8 pg (26.0-34.0); MEAN CORPUSCULAR HGB CONC 34.3 G/dL (31.0-37.0); MEAN CORPUSCULAR VOLUME 96 fL (80-100); MONOCYTES # (AUTO) 0.6 K/uL (0.1-1.0); MONOCYTES % (AUTO) 8.2 % (2.0-9.0); NEUTROPHILS % (AUTO) 55.8 % (40.0-70.0); PLATELET COUNT (AUTO) 334 K/uL (150-450); RED BLOOD CELL COUNT(AUTO) 4.24 MIL/uL (4.00-5.20); RED CELL DISTRIBUTION WIDTH 13.3 % (11.5-14.5)
[2021-09-04 09:06] LABS: ANION GAP 9 mmol/L (8-16); CALCIUM, TOTAL 9.5 mg/dL (8.8-10.5); CARBON DIOXIDE 28 mmol/L (22-29); CHLORIDE 104 mmol/L (98-107); CREATININE 0.83 mg/dL (0.60-1.30); GLOMERULAR FILTR. RATE CALC > 60 mL/min (>60); GLUCOSE,RANDOM 105 mg/dL (70-110); POTASSIUM 4.2 mmol/L (3.5-5.1); SODIUM SERUM 141 mmol/L (136-145); UREA NITROGEN, BLOOD 16 mg/dL (7-18)
[2021-09-04 09:11] LABS: ALANINE AMINOTRANSFERASE 29 U/L (12-78); ALKALINE PHOSPHATASE 69 U/L (46-116); ASPARTATE AMINOTRANSFERASE 27 U/L (15-37); BILIRUBIN,TOTAL 0.2 mg/dL (0.1-1.0); TOTAL PROTEIN, SERUM 7.6 g/dL (6.4-8.2)
[2021-09-04] MEDS ORDERED: RisperiDONE 1 MG TABLET PO ONE (14:45)
[2021-09-04 18:22] VITALS: BP 121/65
== END 2021-09-04 20:49 | disposition home or self-care (01) ==
LOC: EMS 08:10
DX: F31.9 Bipolar disorder, unspecified (principal); F22 Delusional disorders
CPT/HCPCS: 36415; 80053; 85025; 99284; G0480

== ENCOUNTER 2021-11-15 23:41 | Inpatient (IN) | payer MEDICAID, OTHER ==
[~2021-11-15] VITALS: Ht 170.2 cm; Wt 75.3 kg
[2021-11-16 00:59] LABS: COVID AG,FIA SOURCE NASOPHARYNGEAL
[2021-11-16] MEDS ORDERED: LORazepam 2 MG TABLET PO ONE (01:15)
[2021-11-16] MEDS ORDERED: BACITRACIN 0.9 GM PACKET OINTMENT TP ONE (01:15)
[2021-11-16 01:40] LABS: BASOPHILS % (AUTO) 0.6 % (0.0-2.0); EOSINOPHILS % (AUTO) 2.9 % (1.0-6.0); HEMATOCRIT 39.8 % (36-46); HEMOGLOBIN 13.3 g/dL (12.0-16.0); LYMPHOCYTES # (AUTO) 4.6 K/uL (1.0-4.8); LYMPHOCYTES % (AUTO) 33.5 % (22.0-44.0); MEAN CORPUSCULAR HEMOGLOBIN 31.6 pg (26.0-34.0); MEAN CORPUSCULAR HGB CONC 33.4 G/dL (31.0-37.0); MEAN CORPUSCULAR VOLUME 95 fL (80-100); MONOCYTES % (AUTO) 7.5 % (2.0-9.0); NEUTROPHILS # (AUTO) 7.7 K/uL (1.8-7.7); NEUTROPHILS % (AUTO) 55.5 % (40.0-70.0); PLATELET COUNT (AUTO) 337 K/uL (150-450); RED BLOOD CELL COUNT(AUTO) 4.21 MIL/uL (4.00-5.20); RED CELL DISTRIBUTION WIDTH 14.2 % (11.5-14.5)
[2021-11-16 01:50] LABS: ANION GAP 9 mmol/L (8-16); CARBON DIOXIDE 27 mmol/L (22-29); CHLORIDE 107 mmol/L (98-107); CREATININE 1.09 mg/dL (0.60-1.30); GLUCOSE,RANDOM 99 mg/dL (70-110); POTASSIUM 3.4 mmol/L (3.5-5.1); SODIUM SERUM 143 mmol/L (136-145); UREA NITROGEN, BLOOD 13 mg/dL (7-18)
[2021-11-16 01:51] LABS: CALCIUM, TOTAL 9.3 mg/dL (8.8-10.5); GLOMERULAR FILTR. RATE CALC 58 mL/min (>60)
[2021-11-16 01:57] LABS: ALANINE AMINOTRANSFERASE 20 U/L (12-78); ALBUMIN 3.5 g/dL (3.4-5.0); ALKALINE PHOSPHATASE 82 U/L (46-116); ASPARTATE AMINOTRANSFERASE 11 U/L (15-37); BILIRUBIN,TOTAL 0.1 mg/dL (0.1-1.0); CHOL/HDL RATIO 2.5 (3.9-5.7); CHOLESTEROL 161 mg/dL (131-200); HDL CHOLESTEROL 64 mg/dL (40-60); LDL CHOL (CALC.) 72 mg/dL (0-130); TOTAL PROTEIN, SERUM 6.8 g/dL (6.4-8.2); TRIGLYCERIDES 123 mg/dL (15-150)
[2021-11-16] MEDS ORDERED: ZOLPIDEM TARTRATE 10 MG TABLET PO PRN (02:00)
[2021-11-16] MEDS ORDERED: OLANZapine 5 MG RAPDIS TABLET PO PRN (02:00)
[2021-11-16] MEDS ORDERED: LORazepam 2 MG TABLET PO PRN (02:00)
[2021-11-16] MEDS ORDERED: POTASSIUM CHLORIDE 10% 40 MEQ/30 ML LIQUID UDCUP PO ONE (02:15)
[2021-11-16 03:00] VITALS: BP 97/54
[2021-11-16] MEDS ORDERED: PALIPERIDONE PALMITATE 234 MG/1.5 ML SYRINGE IM ONE (09:15)
[2021-11-16] MEDS ORDERED: TUBERCULIN, PURIFIED PROTEIN DERIVATIVE 5 TU/0.1 ML SYRINGE ID ONE (09:15)
[2021-11-16] MEDS ORDERED: MAG HYDROX/AL HYDROX/SIMETH ES 30 ML SUSPENSION UDCUP PO PRN (09:15)
[2021-11-16] MEDS ORDERED: HydrOXYzine PAMOATE 50 MG CAPSULE PO PRN (09:15)
[2021-11-16] MEDS ORDERED: PROMETHAZINE HCL 25 MG TABLET PO PRN (09:15)
[2021-11-16] MEDS ORDERED: MAGNESIUM HYDROXIDE SUSPENSION 30 ML UDCUP PO PRN (09:15)
[2021-11-16] MEDS ORDERED: LOPERAMIDE HCL 2 MG CAPSULE PO PRN (09:15)
[2021-11-16] MEDS ORDERED: GuaiFENesin/D-METHORPHAN [SUGAR-FREE] 200-20MG/10 ML SYRUP UDCUP PO PRN (09:15)
[2021-11-16] MEDS ORDERED: ACETAMINOPHEN 325 MG TABLET PO PRN (09:15)
[2021-11-16] MEDS: THIAMINE 100 MG TABLET PO SCH (16:12)
[2021-11-16] MEDS: OLANZapine 5 MG RAPDIS TABLET PO SCH ×2 (20:15→20:50)
[2021-11-16] MEDS: MELATONIN 5 MG TABLET PO SCH ×2 (20:16→20:49)
[2021-11-17] MEDS: OMEGA-3/DHA/EPA/FISH OIL 1,000 MG CAPSULE PO SCH (09:00)
[2021-11-17] MEDS: THIAMINE 100 MG TABLET PO SCH ×2 (09:16→16:27)
[2021-11-17] MEDS: FOLIC ACID 1 MG TABLET PO SCH (09:16)
[2021-11-17] MEDS: MULTIVITAMINS WITH MINERALS, THERAPEUTIC TABLET PO SCH (09:16)
[2021-11-17] MEDS: NALTREXONE HCL 50 MG TABLET PO SCH (09:16)
[2021-11-17] MEDS ORDERED: GABAPENTIN 300 MG CAPSULE PO PRN (15:30)
[2021-11-17 16:00] VITALS: BP 106/65
[2021-11-17] MEDS: MELATONIN 5 MG TABLET PO SCH (20:52)
[2021-11-17] MEDS: OLANZapine 5 MG RAPDIS TABLET PO SCH (20:53)
[2021-11-18 08:10] VITALS: BP 93/59
[2021-11-18] MEDS: OMEGA-3/DHA/EPA/FISH OIL 1,000 MG CAPSULE PO SCH (09:00)
[2021-11-18] MEDS: FOLIC ACID 1 MG TABLET PO SCH (09:24)
[2021-11-18] MEDS: NALTREXONE HCL 50 MG TABLET PO SCH (09:24)
[2021-11-18] MEDS: MULTIVITAMINS WITH MINERALS, THERAPEUTIC TABLET PO SCH (09:24)
[2021-11-18] MEDS: THIAMINE 100 MG TABLET PO SCH ×2 (09:24→16:39)
[2021-11-18 16:00] VITALS: BP 107/67
[2021-11-18] MEDS: OLANZapine 5 MG RAPDIS TABLET PO SCH (20:35)
[2021-11-18] MEDS: MELATONIN 5 MG TABLET PO SCH (20:35)
[2021-11-18] MEDS ORDERED: PALIPERIDONE PALMITATE 234 MG/1.5 ML SYRINGE IM ONE (22:00)
[2021-11-19 08:00] VITALS: BP 107/64
[2021-11-19] MEDS: THIAMINE 100 MG TABLET PO SCH ×2 (08:26→17:16)
[2021-11-19] MEDS: MULTIVITAMINS WITH MINERALS, THERAPEUTIC TABLET PO SCH (08:26)
[2021-11-19] MEDS: NALTREXONE HCL 50 MG TABLET PO SCH (08:26)
[2021-11-19] MEDS: FOLIC ACID 1 MG TABLET PO SCH (08:26)
[2021-11-19] MEDS: OMEGA-3/DHA/EPA/FISH OIL 1,000 MG CAPSULE PO SCH (08:28)
[2021-11-19 12:06] VITALS: BP 107/64
[2021-11-19 16:00] VITALS: BP 115/73
[2021-11-19] MEDS: OLANZapine 5 MG RAPDIS TABLET PO SCH (20:10)
[2021-11-19] MEDS: MELATONIN 5 MG TABLET PO SCH (20:10)
[2021-11-20] MEDS: MULTIVITAMINS WITH MINERALS, THERAPEUTIC TABLET PO SCH (08:30)
[2021-11-20] MEDS: OMEGA-3/DHA/EPA/FISH OIL 1,000 MG CAPSULE PO SCH (08:30)
[2021-11-20] MEDS: THIAMINE 100 MG TABLET PO SCH ×2 (08:30→16:15)
[2021-11-20] MEDS: NALTREXONE HCL 50 MG TABLET PO SCH (08:30)
[2021-11-20] MEDS: FOLIC ACID 1 MG TABLET PO SCH (08:30)
[2021-11-20 09:00] VITALS: BP 91/59
[2021-11-20] MEDS ORDERED: PALIPERIDONE PALMITATE 156 MG/ML SYRINGE IM ONE (09:00)
[2021-11-20 16:55] VITALS: BP 119/69
[2021-11-20] MEDS: OLANZapine 5 MG RAPDIS TABLET PO SCH (20:06)
[2021-11-20] MEDS: MELATONIN 5 MG TABLET PO SCH (20:06)
[2021-11-21 08:00] VITALS: BP 113/78
[2021-11-21] MEDS: OMEGA-3/DHA/EPA/FISH OIL 1,000 MG CAPSULE PO SCH (09:00)
[2021-11-21] MEDS: FOLIC ACID 1 MG TABLET PO SCH (09:04)
[2021-11-21] MEDS: MULTIVITAMINS WITH MINERALS, THERAPEUTIC TABLET PO SCH (09:04)
[2021-11-21] MEDS: THIAMINE 100 MG TABLET PO SCH ×2 (09:04→16:19)
[2021-11-21] MEDS: NALTREXONE HCL 50 MG TABLET PO SCH (09:04)
[2021-11-21 16:42] VITALS: BP 110/64
[2021-11-21] MEDS: OLANZapine 5 MG RAPDIS TABLET PO SCH (20:02)
[2021-11-21] MEDS: MELATONIN 5 MG TABLET PO SCH (20:03)
[2021-11-22 08:07] VITALS: BP 100/58
[2021-11-22] MEDS: MULTIVITAMINS WITH MINERALS, THERAPEUTIC TABLET PO SCH (08:17)
[2021-11-22] MEDS: OMEGA-3/DHA/EPA/FISH OIL 1,000 MG CAPSULE PO SCH (08:17)
[2021-11-22] MEDS: NALTREXONE HCL 50 MG TABLET PO SCH (08:17)
[2021-11-22] MEDS: THIAMINE 100 MG TABLET PO SCH ×2 (08:18→17:00)
[2021-11-22] MEDS: FOLIC ACID 1 MG TABLET PO SCH (08:18)
[2021-11-22] MEDS ORDERED: PALIPERIDONE PALMITATE 156 MG/ML SYRINGE IM ONE (09:00)
[2021-11-22 17:08] VITALS: BP 102/65
[2021-11-22] MEDS: OLANZapine 5 MG RAPDIS TABLET PO SCH (20:04)
[2021-11-22] MEDS: MELATONIN 5 MG TABLET PO SCH (20:04)
[2021-11-22] MEDS ORDERED: MELA5TAB40 PO (21:20)
[2021-11-22] MEDS ORDERED: NALT50TA PO (21:20)
[2021-11-22] MEDS ORDERED: OMEG-108 PO (21:20)
[2021-11-22] MEDS ORDERED: OLAN5TAB94 PO (21:20)
[2021-11-23] MEDS: FOLIC ACID 1 MG TABLET PO SCH (08:24)
[2021-11-23] MEDS: MULTIVITAMINS WITH MINERALS, THERAPEUTIC TABLET PO SCH (08:24)
[2021-11-23] MEDS: THIAMINE 100 MG TABLET PO SCH ×2 (08:24→16:16)
[2021-11-23] MEDS: NALTREXONE HCL 50 MG TABLET PO SCH (08:25)
[2021-11-23] MEDS: OMEGA-3/DHA/EPA/FISH OIL 1,000 MG CAPSULE PO SCH (08:25)
[2021-11-23 08:28] LABS: COVID AG,FIA SOURCE NASOPHARYNGEAL
[2021-11-23 09:10] VITALS: BP 92/56
[2021-11-23 16:00] VITALS: BP 121/99
[2021-11-23] MEDS: MELATONIN 5 MG TABLET PO SCH (20:44)
[2021-11-23] MEDS: OLANZapine 5 MG RAPDIS TABLET PO SCH (20:45)
[2021-11-24] MEDS: OMEGA-3/DHA/EPA/FISH OIL 1,000 MG CAPSULE PO SCH (09:00)
[2021-11-24] MEDS: NALTREXONE HCL 50 MG TABLET PO SCH (09:22)
[2021-11-24] MEDS: THIAMINE 100 MG TABLET PO SCH ×2 (09:22→16:01)
[2021-11-24] MEDS: FOLIC ACID 1 MG TABLET PO SCH (09:23)
[2021-11-24] MEDS: MULTIVITAMINS WITH MINERALS, THERAPEUTIC TABLET PO SCH (09:23)
[2021-11-24 16:32] VITALS: BP 119/79
[2021-11-24] MEDS: OLANZapine 5 MG RAPDIS TABLET PO SCH (20:06)
[2021-11-24] MEDS: MELATONIN 5 MG TABLET PO SCH (20:06)
[2021-11-25 08:00] VITALS: BP 121/68
[2021-11-25] MEDS: MULTIVITAMINS WITH MINERALS, THERAPEUTIC TABLET PO SCH (08:29)
[2021-11-25] MEDS: NALTREXONE HCL 50 MG TABLET PO SCH (08:29)
[2021-11-25] MEDS: THIAMINE 100 MG TABLET PO SCH (08:29)
[2021-11-25] MEDS: FOLIC ACID 1 MG TABLET PO SCH (08:29)
[2021-11-25] MEDS: OMEGA-3/DHA/EPA/FISH OIL 1,000 MG CAPSULE PO SCH (09:00)
== END 2021-11-25 11:50 | disposition home or self-care (01) | DRG 750 ==
LOC: EMS 23:43 → 3EI 11-16 02:00
PROVIDERS: ADMIT Psychiatry & Neurology Psychiatry; ATTEND Psychiatry & Neurology Psychiatry
DX: F25.1 Schizoaffective disorder, depressive type (principal); Z91.19 Patient's noncompliance with other medical treatment and regimen; E87.6 Hypokalemia; F15.90 Other stimulant use, unspecified, uncomplicated; Z20.822 Contact with and (suspected) exposure to COVID-19; J44.9 Chronic obstructive pulmonary disease, unspecified; Z55.9 Problems related to education and literacy, unspecified; Z59.9 Problem related to housing and economic circumstances, unspecified; Z63.9 Problem related to primary support group, unspecified; Z65.3 Problems related to other legal circumstances; Z87.891 Personal history of nicotine dependence; Z88.8 Allergy status to other drugs, medicaments and biological substances
CPT/HCPCS: 80053; 80061; 84703; 85025; 86592; 99285; G0480; Q9967

== ENCOUNTER 2022-06-03 17:43 | Inpatient (IN) | payer MEDICAID, OTHER ==
[~2022-06-03] VITALS: Ht 167.6 cm; Wt 70.0 kg
[~2022-06-03 17:43] MED LIST changes: +MELA5TAB40 PO; +NALT50TA PO; +OLAN5TAB94 PO; +OMEG-135 PO; -PALI6TAB15 PO; -SERT-162 PO
[2022-06-03 22:19] LABS: COVID AG,FIA SOURCE NASOPHARYNGEAL
[2022-06-04 02:46] VITALS: BP 90/61
[2022-06-04] MEDS ORDERED: LOPERAMIDE HCL 2 MG CAPSULE PO PRN (07:30)
[2022-06-04] MEDS ORDERED: ONDANSETRON HCL 4 MG TABLET PO PRN (07:30)
[2022-06-04] MEDS ORDERED: MAGNESIUM HYDROXIDE SUSPENSION 30 ML UDCUP PO PRN (07:30)
[2022-06-04] MEDS ORDERED: NICOTINE 14 MG/24 HOUR PATCH TD PRN (07:30)
[2022-06-04] MEDS ORDERED: ALBUTEROL SULFATE HFA 90 MCG/PUFF 8 GM INHALER IH PRN (07:30)
[2022-06-04] MEDS ORDERED: GuaiFENesin/D-METHORPHAN [SUGAR-FREE] 200-20MG/10 ML SYRUP UDCUP PO PRN (07:30)
[2022-06-04] MEDS ORDERED: MAG HYDROX/AL HYDROX/SIMETH ES 30 ML SUSPENSION UDCUP PO PRN (07:30)
[2022-06-04] MEDS ORDERED: DOCUSATE SODIUM 100 MG CAPSULE PO PRN (07:30)
[2022-06-04] MEDS ORDERED: PETROLATUM,WHITE 28 GM JELLY TP PRN (07:30)
[2022-06-04] MEDS ORDERED: CloNIDine HCL 0.1 MG TABLET PO PRN (07:30)
[2022-06-04 10:35] VITALS: BP 90/58
[2022-06-04] MEDS: NALTREXONE HCL 50 MG TABLET PO SCH (11:45)
[2022-06-04] MEDS: RisperiDONE 2 MG TABLET PO SCH (11:45)
[2022-06-04 12:22] VITALS: BP 121/62
[2022-06-04] MEDS: ACETAMINOPHEN 325 MG TABLET PO PRN (12:22)
[2022-06-04] MEDS: DiphenhydrAMINE HCL 25 MG CAPSULE PO PRN (21:23)
[2022-06-04] MEDS: OLANZapine 7.5 MG TABLET PO SCH (21:23)
[2022-06-05] MEDS: NALTREXONE HCL 50 MG TABLET PO SCH (09:00)
[2022-06-05] MEDS: RisperiDONE 2 MG TABLET PO SCH (09:00)
[2022-06-05] MEDS: ACETAMINOPHEN 325 MG TABLET PO PRN (17:23)
[2022-06-05] MEDS: OLANZapine 7.5 MG TABLET PO SCH (20:14)
[2022-06-06] MEDS: NALTREXONE HCL 50 MG TABLET PO SCH (09:00)
[2022-06-06] MEDS: RisperiDONE 2 MG TABLET PO SCH (09:00)
[2022-06-06 16:11] VITALS: BP 92/64
[2022-06-06] MEDS: OLANZapine 7.5 MG TABLET PO SCH (20:07)
[2022-06-07] MEDS: RisperiDONE 2 MG TABLET PO SCH (09:00)
[2022-06-07] MEDS: NALTREXONE HCL 50 MG TABLET PO SCH (09:00)
[2022-06-07 09:02] VITALS: BP 118/58
[2022-06-07] MEDS: ACETAMINOPHEN 325 MG TABLET PO PRN (13:01)
[2022-06-07 13:26] LABS: APPEARANCE,URINE TURBID (CLEAR); BILIRUBIN,URINE NEGATIVE (NEGATIVE); GLUCOSE, URINE (UA) NEGATIVE (NEGATIVE); KETONES,URINE NEGATIVE (NEGATIVE); LEUKOCYTE ESTERASE ,URINE LARGE (NEGATIVE); NITRATE,URINE NEGATIVE (NEGATIVE); OCCULT BLOOD,URINE NEGATIVE (NEGATIVE); PH,URINE 7.5 (5.0-8.0); PROTEIN,URINE TRACE mg/dL (NEGATIVE); SPECIFIC GRAVITIY, URINE 1.013 (1.003-1.030); UROBILINOGEN,URINE <=1.0 mg/dL (<=1.0)
[2022-06-07 13:33] LABS: AMPHET/METH SCREEN,URINE NEGATIVE (NEGATIVE); BARBITURATE SCREEN, URINE NEGATIVE (NEGATIVE); BENZODIAZEPINES SCREEN,URINE NEGATIVE (NEGATIVE); CANNABINOID SCREEN,URINE NEGATIVE (NEGATIVE); COCAINE SCREEN,URINE NEGATIVE (NEGATIVE); METHADONE SCREEN, URINE NEGATIVE (NEGATIVE); OPIATE SCREEN,URINE NEGATIVE (NEGATIVE); PHENCYCLIDINE SCREEN,URINE NEGATIVE (NEGATIVE)
[2022-06-07 13:43] LABS: BACTERIA,URINE Many /HPF (None Seen); RBC,URINE 0-2 /HPF (0-2); WBC,URINE 26-50 /HPF (0-5)
[2022-06-07] MEDS: CEPHALEXIN MONOHYDRATE 500 MG CAPSULE PO SCH (17:24)
[2022-06-07] MEDS: OLANZapine 7.5 MG TABLET PO SCH (21:30)
[2022-06-08] MEDS: CEPHALEXIN MONOHYDRATE 500 MG CAPSULE PO SCH ×3 (09:34→16:42)
[2022-06-08] MEDS: RisperiDONE 2 MG TABLET PO SCH (09:34)
[2022-06-08] MEDS: NALTREXONE HCL 50 MG TABLET PO SCH (09:34)
[2022-06-08 16:00] VITALS: BP 90/54
[2022-06-08] MEDS: OLANZapine 7.5 MG TABLET PO SCH (20:30)
[2022-06-09] MEDS: FOLIC ACID 1 MG TABLET PO SCH (09:42)
[2022-06-09] MEDS: CEPHALEXIN MONOHYDRATE 500 MG CAPSULE PO SCH ×3 (09:43→17:42)
[2022-06-09] MEDS: NALTREXONE HCL 50 MG TABLET PO SCH (09:43)
[2022-06-09] MEDS: RisperiDONE 2 MG TABLET PO SCH (09:43)
[2022-06-09] MEDS: PRENATAL NO.137/IRON/FOLIC ACID TABLET PO SCH (09:43)
[2022-06-09 10:43] LABS: BASOPHILS % (AUTO) 0.3 % (0.0-2.0); EOSINOPHILS % (AUTO) 2.4 % (1.0-6.0); HEMATOCRIT 34.9 % (36-46); HEMOGLOBIN 11.6 g/dL (12.0-16.0); LYMPHOCYTES # (AUTO) 1.4 K/uL (1.0-4.8); LYMPHOCYTES % (AUTO) 20.7 % (22.0-44.0); MEAN CORPUSCULAR HEMOGLOBIN 31.2 pg (26.0-34.0); MEAN CORPUSCULAR HGB CONC 33.1 G/dL (31.0-37.0); MEAN CORPUSCULAR VOLUME 94 fL (80-100); MONOCYTES # (AUTO) 0.4 K/uL (0.1-1.0); MONOCYTES % (AUTO) 6.6 % (2.0-9.0); NEUTROPHILS # (AUTO) 4.6 K/uL (1.8-7.7); PLATELET COUNT (AUTO) 276 K/uL (150-450); RED BLOOD CELL COUNT(AUTO) 3.71 MIL/uL (4.00-5.20); RED CELL DISTRIBUTION WIDTH 13.8 % (11.5-14.5)
[2022-06-09 10:58] LABS: ALANINE AMINOTRANSFERASE 10 U/L (12-78); ALBUMIN 2.5 g/dL (3.4-5.0); ALKALINE PHOSPHATASE 66 U/L (46-116); ANION GAP 4 mmol/L (8-16); ASPARTATE AMINOTRANSFERASE 8 U/L (15-37); BILIRUBIN,TOTAL 0.1 mg/dL (0.1-1.0); CALCIUM, TOTAL 8.8 mg/dL (8.8-10.5); CARBON DIOXIDE 26 mmol/L (22-29); CHLORIDE 101 mmol/L (98-107); CREATININE 0.69 mg/dL (0.60-1.30); GLOMERULAR FILTR. RATE CALC > 60 mL/min (>60); GLUCOSE,RANDOM 136 mg/dL (70-110); PHOSPHORUS 3.2 mg/dL (2.5-4.9); POTASSIUM 3.5 mmol/L (3.5-5.1); SODIUM SERUM 131 mmol/L (136-145); TOTAL PROTEIN, SERUM 6.4 g/dL (6.4-8.2); UREA NITROGEN, BLOOD 7 mg/dL (7-18)
[2022-06-09 12:22] LABS: HCG,QUANTITATIVE 5749 mIU/mL (0-6)
[2022-06-09] MEDS: IBUPROFEN 400 MG TABLET PO PRN (20:06)
[2022-06-09] MEDS: OLANZapine 7.5 MG TABLET PO SCH (20:08)
[2022-06-10 06:48] LABS: COVID AG,FIA SOURCE NASAL SWAB
[2022-06-10] MEDS: RisperiDONE 2 MG TABLET PO SCH (09:35)
[2022-06-10] MEDS: NALTREXONE HCL 50 MG TABLET PO SCH (09:35)
[2022-06-10] MEDS: PRENATAL NO.137/IRON/FOLIC ACID TABLET PO SCH (09:35)
[2022-06-10] MEDS: CEPHALEXIN MONOHYDRATE 500 MG CAPSULE PO SCH ×3 (09:35→16:13)
[2022-06-10] MEDS: FOLIC ACID 1 MG TABLET PO SCH (09:35)
[2022-06-10 10:39] VITALS: BP 104/59
[2022-06-10 16:45] VITALS: BP 112/63
[2022-06-10] MEDS: OLANZapine 7.5 MG TABLET PO SCH (20:34)
[2022-06-10 21:13] VITALS: BP 112/62
[2022-06-10] MEDS: CARBOXYMETHYLCELLULOSE SODIUM 0.4 ML OPHTHALMIC SOLUTION [PF] OU PRN (21:13)
[2022-06-10] MEDS: IBUPROFEN 400 MG TABLET PO PRN (21:13)
[2022-06-11] MEDS: PRENATAL NO.137/IRON/FOLIC ACID TABLET PO SCH (09:19)
[2022-06-11] MEDS: NALTREXONE HCL 50 MG TABLET PO SCH (09:19)
[2022-06-11] MEDS: FOLIC ACID 1 MG TABLET PO SCH (09:19)
[2022-06-11] MEDS: CEPHALEXIN MONOHYDRATE 500 MG CAPSULE PO SCH ×3 (09:19→16:22)
[2022-06-11] MEDS: RisperiDONE 2 MG TABLET PO SCH (09:19)
[2022-06-11 10:31] VITALS: BP 110/79
[2022-06-11 17:52] VITALS: BP 105/69
[2022-06-11] MEDS: ACETAMINOPHEN 325 MG TABLET PO PRN (18:41)
[2022-06-11] MEDS: CARBOXYMETHYLCELLULOSE SODIUM 0.4 ML OPHTHALMIC SOLUTION [PF] OU PRN (18:41)
[2022-06-11 18:45] VITALS: BP 104/61
[2022-06-11] MEDS: OLANZapine 7.5 MG TABLET PO SCH (21:13)
[2022-06-12] MEDS: RisperiDONE 2 MG TABLET PO SCH (09:13)
[2022-06-12] MEDS: PRENATAL NO.137/IRON/FOLIC ACID TABLET PO SCH (09:13)
[2022-06-12] MEDS: CEPHALEXIN MONOHYDRATE 500 MG CAPSULE PO SCH ×2 (09:13→12:11)
[2022-06-12] MEDS: FOLIC ACID 1 MG TABLET PO SCH (09:13)
[2022-06-12] MEDS: NALTREXONE HCL 50 MG TABLET PO SCH (09:13)
[2022-06-12 09:21] VITALS: BP 95/54
[2022-06-12] MEDS: ACETAMINOPHEN 325 MG TABLET PO PRN (16:28)
[2022-06-12 16:34] VITALS: BP 104/64
[2022-06-12] MEDS: DiphenhydrAMINE HCL 25 MG CAPSULE PO PRN (20:47)
[2022-06-12] MEDS: CARBOXYMETHYLCELLULOSE SODIUM 0.4 ML OPHTHALMIC SOLUTION [PF] OU PRN (20:48)
[2022-06-12] MEDS: OLANZapine 7.5 MG TABLET PO SCH (20:48)
[2022-06-13 09:12] VITALS: BP 90/50
[2022-06-13] MEDS: FOLIC ACID 1 MG TABLET PO SCH (09:24)
[2022-06-13] MEDS: NALTREXONE HCL 50 MG TABLET PO SCH (09:25)
[2022-06-13] MEDS: MAGNESIUM OXIDE 400 MG TABLET PO SCH (09:25)
[2022-06-13] MEDS: PRENATAL NO.137/IRON/FOLIC ACID TABLET PO SCH (09:25)
[2022-06-13] MEDS: RisperiDONE 2 MG TABLET PO SCH (09:25)
[2022-06-13 16:37] VITALS: BP 116/57
[2022-06-13 19:50] VITALS: BP 120/70
[2022-06-13] MEDS: CARBOXYMETHYLCELLULOSE SODIUM 0.4 ML OPHTHALMIC SOLUTION [PF] OU PRN (19:52)
[2022-06-13] MEDS: OLANZapine 7.5 MG TABLET PO SCH (19:53)
[2022-06-13] MEDS: IBUPROFEN 400 MG TABLET PO PRN (19:53)
[2022-06-14 08:00] VITALS: BP 100/61
[2022-06-14] MEDS: FOLIC ACID 1 MG TABLET PO SCH (09:28)
[2022-06-14] MEDS: NALTREXONE HCL 50 MG TABLET PO SCH (09:28)
[2022-06-14] MEDS: MAGNESIUM OXIDE 400 MG TABLET PO SCH (09:28)
[2022-06-14] MEDS: RisperiDONE 2 MG TABLET PO SCH (09:28)
[2022-06-14] MEDS: PRENATAL NO.137/IRON/FOLIC ACID TABLET PO SCH (09:29)
[2022-06-14 16:50] VITALS: BP 107/64
[2022-06-14] MEDS: OLANZapine 7.5 MG TABLET PO SCH (21:16)
[2022-06-15 08:00] VITALS: BP 106/67
[2022-06-15] MEDS: NALTREXONE HCL 50 MG TABLET PO SCH (08:45)
[2022-06-15] MEDS: FOLIC ACID 1 MG TABLET PO SCH (08:45)
[2022-06-15] MEDS: PRENATAL NO.137/IRON/FOLIC ACID TABLET PO SCH (08:46)
[2022-06-15] MEDS: RisperiDONE 2 MG TABLET PO SCH (08:46)
[2022-06-15] MEDS: MAGNESIUM OXIDE 400 MG TABLET PO SCH (08:46)
[2022-06-15] MEDS: CARBOXYMETHYLCELLULOSE SODIUM 0.4 ML OPHTHALMIC SOLUTION [PF] OU PRN (14:42)
[2022-06-15 14:43] VITALS: BP 113/74
[2022-06-15] MEDS: IBUPROFEN 400 MG TABLET PO PRN (14:43)
[2022-06-15] MEDS: OLANZapine 7.5 MG TABLET PO SCH (21:03)
[2022-06-16 08:06] VITALS: BP 89/60
[2022-06-16] MEDS: FOLIC ACID 1 MG TABLET PO SCH (08:37)
[2022-06-16] MEDS: MAGNESIUM OXIDE 400 MG TABLET PO SCH (08:37)
[2022-06-16] MEDS: RisperiDONE 2 MG TABLET PO SCH (08:37)
[2022-06-16] MEDS: NALTREXONE HCL 50 MG TABLET PO SCH (08:37)
[2022-06-16] MEDS: PRENATAL NO.137/IRON/FOLIC ACID TABLET PO SCH (08:37)
[2022-06-16 16:03] VITALS: BP 105/63
[2022-06-16] MEDS: OLANZapine 7.5 MG TABLET PO SCH (20:57)
[2022-06-17 06:52] LABS: COVID AG,FIA SOURCE NASAL SWAB
[2022-06-17 09:57] VITALS: BP 115/75
[2022-06-17] MEDS: FOLIC ACID 1 MG TABLET PO SCH (10:14)
[2022-06-17] MEDS: PRENATAL NO.137/IRON/FOLIC ACID TABLET PO SCH (10:14)
[2022-06-17] MEDS: NALTREXONE HCL 50 MG TABLET PO SCH (10:14)
[2022-06-17] MEDS: RisperiDONE 2 MG TABLET PO SCH (10:14)
[2022-06-17 16:54] VITALS: BP 110/70
[2022-06-17] MEDS: OLANZapine 7.5 MG TABLET PO SCH (20:35)
[2022-06-18] MEDS: NALTREXONE HCL 50 MG TABLET PO SCH (08:59)
[2022-06-18] MEDS: FOLIC ACID 1 MG TABLET PO SCH (08:59)
[2022-06-18] MEDS: RisperiDONE 2 MG TABLET PO SCH (08:59)
[2022-06-18] MEDS: PRENATAL NO.137/IRON/FOLIC ACID TABLET PO SCH (08:59)
[2022-06-18 10:49] VITALS: BP 96/61
[2022-06-18 16:44] VITALS: BP 97/55
[2022-06-18] MEDS: CARBOXYMETHYLCELLULOSE SODIUM 0.4 ML OPHTHALMIC SOLUTION [PF] OU PRN (18:39)
[2022-06-18] MEDS: OLANZapine 7.5 MG TABLET PO SCH (20:40)
[2022-06-19] MEDS ORDERED: OLAN7.5T22 PO (09:37)
[2022-06-19] MEDS ORDERED: RISP2TAB86 PO (09:37)
[2022-06-19] MEDS ORDERED: NALT50TA PO (09:37)
[2022-06-19] MEDS ORDERED: PREN-217 PO (09:37)
[2022-06-19] MEDS: FOLIC ACID 1 MG TABLET PO SCH (11:03)
[2022-06-19] MEDS: PRENATAL NO.137/IRON/FOLIC ACID TABLET PO SCH (11:03)
[2022-06-19] MEDS: RisperiDONE 2 MG TABLET PO SCH (11:04)
[2022-06-19] MEDS: NALTREXONE HCL 50 MG TABLET PO SCH (11:04)
== END 2022-06-19 13:06 | disposition home or self-care (01) | DRG 566 ==
LOC: EMS 17:44 → 3EI 06-04 00:49
PROVIDERS: ADMIT Psychiatry & Neurology Child & Adolescent Psychiatry; ATTEND Psychiatry & Neurology Child & Adolescent Psychiatry
DX: O99.342 Other mental disorders complicating pregnancy, second trimester (principal); F25.0 Schizoaffective disorder, bipolar type; F41.9 Anxiety disorder, unspecified; G47.00 Insomnia, unspecified; K59.00 Constipation, unspecified; O23.42 Unspecified infection of urinary tract in pregnancy, second trimester; O99.352 Diseases of the nervous system complicating pregnancy, second trimester; Z53.20 Procedure and treatment not carried out because of patient's decision for unspecified reasons; Z20.822 Contact with and (suspected) exposure to COVID-19; Z32.01 Encounter for pregnancy test, result positive; Z3A.17 17 weeks gestation of pregnancy; Z59.00 Homelessness unspecified; Z79.899 Other long term (current) drug therapy
CPT/HCPCS: 76801; 80053; 80307; 81001; 83735; 84100; 84702; 84703; 85025; 87086; 99285

== ENCOUNTER 2022-07-03 14:01 | Inpatient (IN) | payer MEDICAID, OTHER ==
[~2022-07-03] VITALS: Ht 165.1 cm; Wt 72.1 kg
[~2022-07-03 14:01] MED LIST changes: -MELA5TAB40 PO; -OLAN5TAB94 PO; +OLAN7.5T22 PO; -OMEG-135 PO; +PREN-217 PO; +RISP2TAB86 PO
[2022-07-03 14:58] LABS: COVID AG,FIA SOURCE NASAL SWAB
[2022-07-03 14:58] LABS: AMPHET/METH SCREEN,URINE NEGATIVE (NEGATIVE); BARBITURATE SCREEN, URINE NEGATIVE (NEGATIVE); BENZODIAZEPINES SCREEN,URINE NEGATIVE (NEGATIVE); CANNABINOID SCREEN,URINE NEGATIVE (NEGATIVE); COCAINE SCREEN,URINE NEGATIVE (NEGATIVE); METHADONE SCREEN, URINE NEGATIVE (NEGATIVE); OPIATE SCREEN,URINE NEGATIVE (NEGATIVE)
[2022-07-03 14:59] LABS: PHENCYCLIDINE SCREEN,URINE NEGATIVE (NEGATIVE)
[2022-07-03] MEDS ORDERED: LORazepam 2 MG TABLET PO ONE (15:30)
[2022-07-03] MEDS ORDERED: OLANZapine 5 MG TABLET PO ONE (15:30)
[2022-07-03] MEDS ORDERED: OLANZapine 5 MG RAPDIS TABLET PO PRN (16:30)
[2022-07-03] MEDS ORDERED: LORazepam 2 MG TABLET PO PRN (16:30)
[2022-07-03] MEDS ORDERED: ZOLPIDEM TARTRATE 10 MG TABLET PO PRN (16:30)
[2022-07-03 16:48] LABS: APPEARANCE,URINE TURBID (CLEAR); BILIRUBIN,URINE NEGATIVE (NEGATIVE); GLUCOSE, URINE (UA) NEGATIVE (NEGATIVE); LEUKOCYTE ESTERASE ,URINE LARGE (NEGATIVE); NITRATE,URINE NEGATIVE (NEGATIVE); OCCULT BLOOD,URINE NEGATIVE (NEGATIVE); PROTEIN,URINE TRACE mg/dL (NEGATIVE); SPECIFIC GRAVITIY, URINE 1.025 (1.003-1.030); UROBILINOGEN,URINE <=1.0 mg/dL (<=1.0)
[2022-07-03 16:56] LABS: RBC,URINE 0-2 /HPF (0-2)
[2022-07-03 16:57] LABS: AMORPHOUS SEDIMENT,UR Many /LPF (None Seen); BACTERIA,URINE Few /HPF (None Seen); SQUAMOUS EPITHELIAL CELL,UR Few /LPF (None Seen)
[2022-07-03 22:42] VITALS: BP 130/72
[2022-07-03] MEDS ORDERED: INFLUENZA VIRUS VACCINE QVS 2022-23 (6MO+)/PF 60 MCG/0.5 ML SYRINGE IM. ONE (23:30)
[2022-07-04] MEDS ORDERED: PNEUMOCOCCAL VACCINE POLYVALENT 0.5 ML VIAL [PPSV23] IM. ONE (00:15)
[2022-07-04 08:30] VITALS: BP 124/80
[2022-07-04] MEDS: PRENATAL NO.137/IRON/FOLIC ACID TABLET PO SCH (12:56)
[2022-07-04 16:37] VITALS: BP 114/72
[2022-07-04] MEDS: CEPHALEXIN MONOHYDRATE 500 MG CAPSULE PO SCH (16:56)
[2022-07-04] MEDS: NYSTATIN 30 GM CREAM TP SCH (16:57)
[2022-07-04] MEDS: ACETAMINOPHEN 325 MG TABLET PO PRN (20:42)
[2022-07-04 20:52] VITALS: BP 110/80
[2022-07-05 02:46] VITALS: BP 112/80
[2022-07-05] MEDS: ACETAMINOPHEN 325 MG TABLET PO PRN ×2 (02:46→12:50)
[2022-07-05 08:00] VITALS: BP 128/69
[2022-07-05] MEDS: NYSTATIN 30 GM CREAM TP SCH ×2 (09:28→17:06)
[2022-07-05] MEDS: CEPHALEXIN MONOHYDRATE 500 MG CAPSULE PO SCH ×3 (09:28→17:06)
[2022-07-05] MEDS: PRENATAL NO.137/IRON/FOLIC ACID TABLET PO SCH (09:28)
[2022-07-05] MEDS ORDERED: PALIPERIDONE PALMITATE 156 MG/ML SYRINGE IM SCH (11:45)
[2022-07-05 16:00] VITALS: BP 120/69
[2022-07-06] MEDS: NYSTATIN 30 GM CREAM TP SCH (09:16)
[2022-07-06] MEDS: PRENATAL NO.137/IRON/FOLIC ACID TABLET PO SCH (09:16)
[2022-07-06] MEDS: CEPHALEXIN MONOHYDRATE 500 MG CAPSULE PO SCH ×2 (09:16→13:08)
[2022-07-06] MEDS ORDERED: PALI156D IM (10:58)
[2022-07-06 13:37] VITALS: BP 119/71
== END 2022-07-06 15:10 | disposition home or self-care (01) | DRG 750 ==
LOC: EMS 14:01 → B3A 16:50 → 3EI 20:59
PROVIDERS: ADMIT Psychiatry & Neurology Child & Adolescent Psychiatry; ATTEND Psychiatry & Neurology Child & Adolescent Psychiatry
DX: F25.0 Schizoaffective disorder, bipolar type (principal); R45.851 Suicidal ideations; Z91.199 Patient's noncompliance with other medical treatment and regimen due to unspecified reason; Z20.822 Contact with and (suspected) exposure to COVID-19; G47.00 Insomnia, unspecified; E78.5 Hyperlipidemia, unspecified; J44.9 Chronic obstructive pulmonary disease, unspecified; I10 Essential (primary) hypertension; N39.0 Urinary tract infection, site not specified; B37.2 Candidiasis of skin and nail
CPT/HCPCS: 81001; 87081; 87086; 99285

== ENCOUNTER 2022-07-11 14:45 | Emergency (ER) | payer MEDICAID, OTHER ==
[~2022-07-11] VITALS: Ht 165.1 cm; Wt 65.9 kg
[~2022-07-11 14:45] MED LIST changes: -NALT50TA PO; -OLAN7.5T22 PO; +PALI156D IM; -PREN-217 PO; -RISP2TAB86 PO
[2022-07-11 16:50] LABS: COVID AG,FIA SOURCE NASOPHARYNGEAL
[2022-07-11] MEDS ORDERED: ACETAMINOPHEN 325 MG TABLET PO ONE (19:15)
[2022-07-11 19:34] VITALS: BP 129/69
== END 2022-07-11 19:40 | disposition home or self-care (01) ==
LOC: EMS 14:58
DX: F20.9 Schizophrenia, unspecified (principal); F31.9 Bipolar disorder, unspecified; Z88.8 Allergy status to other drugs, medicaments and biological substances; Z20.822 Contact with and (suspected) exposure to COVID-19
CPT/HCPCS: 99284; Z7502; Z7610

== ENCOUNTER 2022-07-14 15:25 | Inpatient (IN) | payer MEDICAID, OTHER ==
[~2022-07-14] VITALS: Ht 162.6 cm; Wt 74.0 kg
[2022-07-14 17:04] LABS: COVID AG,FIA SOURCE NASAL SWAB
[2022-07-14 21:35] VITALS: BP 135/85
[2022-07-14] MEDS ORDERED: MAGNESIUM HYDROXIDE SUSPENSION 30 ML UDCUP PO PRN (23:00)
[2022-07-14] MEDS ORDERED: PETROLATUM,WHITE 28 GM JELLY TP PRN (23:00)
[2022-07-14] MEDS ORDERED: BENZOCAINE/MENTHOL LOZENGE PO PRN (23:00)
[2022-07-14] MEDS ORDERED: ALBUTEROL SULFATE HFA 90 MCG/PUFF 8 GM INHALER IH PRN (23:00)
[2022-07-14] MEDS ORDERED: PNEUMOCOCCAL VACCINE POLYVALENT 0.5 ML VIAL [PPSV23] IM. ONE (23:00)
[2022-07-14] MEDS ORDERED: CloNIDine HCL 0.1 MG TABLET PO PRN (23:00)
[2022-07-14] MEDS ORDERED: OMEPRAZOLE 20 MG CAPSULE PO PRN (23:00)
[2022-07-14] MEDS ORDERED: MAG HYDROX/AL HYDROX/SIMETH ES 30 ML SUSPENSION UDCUP PO PRN (23:00)
[2022-07-14] MEDS ORDERED: LOPERAMIDE HCL 2 MG CAPSULE PO PRN (23:00)
[2022-07-15] MEDS: PRENATAL NO.137/IRON/FOLIC ACID TABLET PO SCH (08:16)
[2022-07-15 09:35] VITALS: BP 98/57
[2022-07-15] MEDS ORDERED: ALBUTEROL SULFATE HFA 90 MCG/PUFF 8 GM INHALER IH PRN (15:15)
[2022-07-15] MEDS ORDERED: CloNIDine HCL 0.1 MG TABLET PO PRN (15:15)
[2022-07-15] MEDS ORDERED: LOPERAMIDE HCL 2 MG CAPSULE PO PRN (15:15)
[2022-07-15] MEDS ORDERED: ACETAMINOPHEN 325 MG TABLET PO PRN (15:15)
[2022-07-15] MEDS ORDERED: GuaiFENesin/D-METHORPHAN [SUGAR-FREE] 200-20MG/10 ML SYRUP UDCUP PO PRN (15:15)
[2022-07-15] MEDS ORDERED: DOCUSATE SODIUM 100 MG CAPSULE PO PRN (15:15)
[2022-07-15] MEDS ORDERED: ONDANSETRON HCL 4 MG TABLET PO PRN (15:15)
[2022-07-15] MEDS ORDERED: PETROLATUM,WHITE 28 GM JELLY TP PRN (15:15)
[2022-07-15 16:05] VITALS: BP 121/77
[2022-07-15 20:20] VITALS: BP 124/76
[2022-07-15] MEDS: ACETAMINOPHEN 325 MG TABLET PO PRN (20:30)
[2022-07-16] MEDS: PRENATAL NO.137/IRON/FOLIC ACID TABLET PO SCH (08:37)
[2022-07-16 16:07] VITALS: BP 112/60
[2022-07-16] MEDS: DIVALPROEX SODIUM 500 MG DR TABLET PO SCH (21:47)
[2022-07-16] MEDS: PALIPERIDONE 6 MG ER TABLET PO SCH (21:47)
[2022-07-17] MEDS: DIVALPROEX SODIUM 500 MG DR TABLET PO SCH ×2 (10:46→20:06)
[2022-07-17] MEDS: PRENATAL NO.137/IRON/FOLIC ACID TABLET PO SCH (10:46)
[2022-07-17] MEDS: PALIPERIDONE 6 MG ER TABLET PO SCH (20:07)
[2022-07-18 08:13] VITALS: BP 120/68
[2022-07-18] MEDS: PRENATAL NO.137/IRON/FOLIC ACID TABLET PO SCH (09:06)
[2022-07-18] MEDS: DIVALPROEX SODIUM 500 MG DR TABLET PO SCH ×2 (09:06→20:21)
[2022-07-18 16:28] VITALS: BP 137/88
[2022-07-18 18:45] LABS: APPEARANCE,URINE HAZY (CLEAR); BILIRUBIN,URINE NEGATIVE (NEGATIVE); GLUCOSE, URINE (UA) NEGATIVE (NEGATIVE); LEUKOCYTE ESTERASE ,URINE LARGE (NEGATIVE); NITRATE,URINE NEGATIVE (NEGATIVE); OCCULT BLOOD,URINE NEGATIVE (NEGATIVE); PH,URINE 7.5 (5.0-8.0); PROTEIN,URINE NEGATIVE (NEGATIVE); UROBILINOGEN,URINE <=1.0 mg/dL (<=1.0)
[2022-07-18 18:50] LABS: AMPHET/METH SCREEN,URINE NEGATIVE (NEGATIVE); BARBITURATE SCREEN, URINE NEGATIVE (NEGATIVE); BENZODIAZEPINES SCREEN,URINE NEGATIVE (NEGATIVE); CANNABINOID SCREEN,URINE NEGATIVE (NEGATIVE); COCAINE SCREEN,URINE NEGATIVE (NEGATIVE); METHADONE SCREEN, URINE NEGATIVE (NEGATIVE); OPIATE SCREEN,URINE NEGATIVE (NEGATIVE)
[2022-07-18 18:51] LABS: PHENCYCLIDINE SCREEN,URINE NEGATIVE (NEGATIVE)
[2022-07-18 18:55] LABS: BACTERIA,URINE None Seen /HPF (None Seen); WBC,URINE 0-2 /HPF (0-5)
[2022-07-18 18:56] LABS: AMORPHOUS SEDIMENT,UR Moderate /LPF (None Seen); SQUAMOUS EPITHELIAL CELL,UR Few /LPF (None Seen)
[2022-07-18 20:20] VITALS: BP 126/79
[2022-07-18] MEDS: PALIPERIDONE 6 MG ER TABLET PO SCH (20:22)
[2022-07-18] MEDS: ACETAMINOPHEN 325 MG TABLET PO PRN (20:22)
[2022-07-19] MEDS: DIVALPROEX SODIUM 500 MG DR TABLET PO SCH ×2 (08:25→21:07)
[2022-07-19] MEDS: PRENATAL NO.137/IRON/FOLIC ACID TABLET PO SCH (08:25)
[2022-07-19 20:55] VITALS: BP 135/80
[2022-07-19] MEDS: ACETAMINOPHEN 325 MG TABLET PO PRN (20:57)
[2022-07-19] MEDS: PALIPERIDONE 6 MG ER TABLET PO SCH (21:07)
[2022-07-20 06:19] VITALS: BP 130/88
[2022-07-20] MEDS: ACETAMINOPHEN 325 MG TABLET PO PRN ×2 (06:21→21:08)
[2022-07-20 06:45] LABS: COVID AG,FIA SOURCE NASAL SWAB
[2022-07-20] MEDS: PRENATAL NO.137/IRON/FOLIC ACID TABLET PO SCH (10:24)
[2022-07-20] MEDS: DIVALPROEX SODIUM 500 MG DR TABLET PO SCH ×2 (10:24→20:54)
[2022-07-20 16:00] VITALS: BP 120/73
[2022-07-20] MEDS: PALIPERIDONE 6 MG ER TABLET PO SCH (20:54)
[2022-07-20 21:05] VITALS: BP 106/61
[2022-07-20] MEDS: NYSTATIN 30 GM CREAM TP SCH (21:15)
[2022-07-21 08:00] VITALS: BP 113/64
[2022-07-21] MEDS: PRENATAL NO.137/IRON/FOLIC ACID TABLET PO SCH (08:12)
[2022-07-21] MEDS: DIVALPROEX SODIUM 500 MG DR TABLET PO SCH ×2 (08:12→20:19)
[2022-07-21] MEDS: NYSTATIN 30 GM CREAM TP SCH ×2 (08:13→16:32)
[2022-07-21] MEDS: PALIPERIDONE 6 MG ER TABLET PO SCH (20:19)
[2022-07-22] MEDS: PRENATAL NO.137/IRON/FOLIC ACID TABLET PO SCH (10:01)
[2022-07-22] MEDS: NYSTATIN 30 GM CREAM TP SCH ×2 (10:02→16:03)
[2022-07-22 16:12] VITALS: BP 137/80
[2022-07-22 20:00] LABS: APPEARANCE,URINE HAZY (CLEAR); BILIRUBIN,URINE NEGATIVE (NEGATIVE); GLUCOSE, URINE (UA) NEGATIVE (NEGATIVE); LEUKOCYTE ESTERASE ,URINE LARGE (NEGATIVE); NITRATE,URINE NEGATIVE (NEGATIVE); OCCULT BLOOD,URINE NEGATIVE (NEGATIVE); PH,URINE 6.5 (5.0-8.0); PROTEIN,URINE TRACE mg/dL (NEGATIVE); SPECIFIC GRAVITIY, URINE 1.018 (1.003-1.030); UROBILINOGEN,URINE <=1.0 mg/dL (<=1.0)
[2022-07-22 20:18] LABS: BACTERIA,URINE Few /HPF (None Seen); RBC,URINE 0-2 /HPF (0-2); SQUAMOUS EPITHELIAL CELL,UR Few /LPF (None Seen)
[2022-07-22] MEDS: HALOPERIDOL 5 MG TABLET PO SCH (20:58)
[2022-07-23] MEDS: PRENATAL NO.137/IRON/FOLIC ACID TABLET PO SCH (08:11)
[2022-07-23] MEDS: NYSTATIN 30 GM CREAM TP SCH ×2 (08:11→16:19)
[2022-07-23 08:34] VITALS: BP 103/54
[2022-07-23] MEDS: MetroNIDAZOLE 500 MG TABLET PO SCH ×2 (09:32→16:20)
[2022-07-23] MEDS: NITROFURANTOIN MONOHYD/M-CRYST 100 MG CAPSULE [MACROBID] PO SCH ×2 (09:32→16:19)
[2022-07-23] MEDS: LACTOBACILLUS ACIDOPHILUS/BULGARICUS TABLET PO SCH ×2 (09:32→16:19)
[2022-07-23 16:41] VITALS: BP 121/73
[2022-07-23] MEDS: HALOPERIDOL 5 MG TABLET PO SCH (20:29)
[2022-07-24 08:00] VITALS: BP 113/65
[2022-07-24] MEDS: PRENATAL NO.137/IRON/FOLIC ACID TABLET PO SCH (08:14)
[2022-07-24] MEDS: NITROFURANTOIN MONOHYD/M-CRYST 100 MG CAPSULE [MACROBID] PO SCH ×2 (08:14→16:17)
[2022-07-24] MEDS: MetroNIDAZOLE 500 MG TABLET PO SCH ×2 (08:14→16:17)
[2022-07-24] MEDS: LACTOBACILLUS ACIDOPHILUS/BULGARICUS TABLET PO SCH ×2 (08:14→16:17)
[2022-07-24] MEDS: NYSTATIN 30 GM CREAM TP SCH ×2 (12:17→17:34)
[2022-07-24] MEDS: ACETAMINOPHEN 325 MG TABLET PO PRN (12:18)
[2022-07-24] MEDS: HALOPERIDOL 5 MG TABLET PO SCH (20:05)
[2022-07-25 08:30] VITALS: BP 113/69
[2022-07-25] MEDS: MetroNIDAZOLE 500 MG TABLET PO SCH ×2 (08:38→16:12)
[2022-07-25] MEDS: LACTOBACILLUS ACIDOPHILUS/BULGARICUS TABLET PO SCH ×2 (08:38→16:11)
[2022-07-25] MEDS: PRENATAL NO.137/IRON/FOLIC ACID TABLET PO SCH (08:38)
[2022-07-25] MEDS: ACETAMINOPHEN 325 MG TABLET PO PRN (08:38)
[2022-07-25] MEDS: NITROFURANTOIN MONOHYD/M-CRYST 100 MG CAPSULE [MACROBID] PO SCH ×2 (08:38→16:11)
[2022-07-25] MEDS: NYSTATIN 30 GM CREAM TP SCH ×2 (12:22→16:12)
[2022-07-25 16:15] VITALS: BP 114/70
[2022-07-25] MEDS: HALOPERIDOL 5 MG TABLET PO SCH (20:27)
[2022-07-26] MEDS: NITROFURANTOIN MONOHYD/M-CRYST 100 MG CAPSULE [MACROBID] PO SCH ×2 (09:58→16:35)
[2022-07-26] MEDS: LACTOBACILLUS ACIDOPHILUS/BULGARICUS TABLET PO SCH ×2 (09:58→16:34)
[2022-07-26] MEDS: PRENATAL NO.137/IRON/FOLIC ACID TABLET PO SCH (09:59)
[2022-07-26] MEDS: MetroNIDAZOLE 500 MG TABLET PO SCH ×2 (09:59→16:34)
[2022-07-26 16:22] VITALS: BP 113/68
[2022-07-26] MEDS: HALOPERIDOL 5 MG TABLET PO SCH (20:54)
[2022-07-27 06:38] LABS: COVID AG,FIA SOURCE NASAL SWAB
[2022-07-27] MEDS: LACTOBACILLUS ACIDOPHILUS/BULGARICUS TABLET PO SCH ×2 (09:05→17:06)
[2022-07-27] MEDS: MetroNIDAZOLE 500 MG TABLET PO SCH ×2 (09:05→17:06)
[2022-07-27] MEDS: PRENATAL NO.137/IRON/FOLIC ACID TABLET PO SCH (09:05)
[2022-07-27] MEDS: NITROFURANTOIN MONOHYD/M-CRYST 100 MG CAPSULE [MACROBID] PO SCH ×2 (09:05→17:06)
[2022-07-27 17:48] VITALS: BP 106/68
[2022-07-27] MEDS: HALOPERIDOL 5 MG TABLET PO SCH (20:57)
[2022-07-28] MEDS: MetroNIDAZOLE 500 MG TABLET PO SCH ×2 (08:36→16:54)
[2022-07-28] MEDS: NITROFURANTOIN MONOHYD/M-CRYST 100 MG CAPSULE [MACROBID] PO SCH ×2 (08:36→16:54)
[2022-07-28] MEDS: PRENATAL NO.137/IRON/FOLIC ACID TABLET PO SCH (08:36)
[2022-07-28] MEDS: LACTOBACILLUS ACIDOPHILUS/BULGARICUS TABLET PO SCH ×2 (08:36→16:54)
[2022-07-28 17:33] VITALS: BP 94/51
[2022-07-28] MEDS: HALOPERIDOL 5 MG TABLET PO SCH (21:14)
[2022-07-29] MEDS: NITROFURANTOIN MONOHYD/M-CRYST 100 MG CAPSULE [MACROBID] PO SCH ×2 (11:47→16:48)
[2022-07-29] MEDS: PRENATAL NO.137/IRON/FOLIC ACID TABLET PO SCH (11:49)
[2022-07-29] MEDS: LACTOBACILLUS ACIDOPHILUS/BULGARICUS TABLET PO SCH ×2 (11:49→16:48)
[2022-07-29] MEDS: MetroNIDAZOLE 500 MG TABLET PO SCH ×2 (11:49→16:48)
[2022-07-29 16:29] VITALS: BP 112/68
[2022-07-29] MEDS: DiphenhydrAMINE HCL 25 MG CAPSULE PO PRN (17:08)
[2022-07-29] MEDS: TRIAMCINOLONE 0.1% 60 ML LOTION TP SCH (17:10)
[2022-07-29 20:40] VITALS: BP 114/72
[2022-07-29] MEDS: HALOPERIDOL 5 MG TABLET PO SCH (21:00)
[2022-07-30] MEDS: PRENATAL NO.137/IRON/FOLIC ACID TABLET PO SCH (08:20)
[2022-07-30] MEDS: TRIAMCINOLONE 0.1% 60 ML LOTION TP SCH ×2 (08:20→16:07)
[2022-07-30 10:33] VITALS: BP 98/57
[2022-07-30 16:12] VITALS: BP 122/79
[2022-07-30] MEDS: HALOPERIDOL 5 MG TABLET PO SCH (20:17)
[2022-07-30 20:20] VITALS: BP 112/72
[2022-07-30] MEDS: DiphenhydrAMINE HCL 25 MG CAPSULE PO PRN (20:24)
[2022-07-31] MEDS: TRIAMCINOLONE 0.1% 60 ML LOTION TP SCH ×2 (08:34→16:57)
[2022-07-31] MEDS: PRENATAL NO.137/IRON/FOLIC ACID TABLET PO SCH (08:34)
[2022-07-31 09:30] VITALS: BP 108/62
[2022-07-31 16:22] VITALS: BP 90/63
[2022-07-31] MEDS: DiphenhydrAMINE HCL 25 MG CAPSULE PO PRN (20:01)
[2022-07-31] MEDS: HALOPERIDOL 5 MG TABLET PO SCH (20:03)
[2022-08-01 08:30] VITALS: BP 105/60
[2022-08-01] MEDS: TRIAMCINOLONE 0.1% 60 ML LOTION TP SCH ×2 (08:44→16:19)
[2022-08-01] MEDS: PRENATAL NO.137/IRON/FOLIC ACID TABLET PO SCH (08:44)
[2022-08-01 16:09] VITALS: BP 98/64
[2022-08-01] MEDS: HALOPERIDOL 5 MG TABLET PO SCH (21:00)
[2022-08-01] MEDS: DiphenhydrAMINE HCL 25 MG CAPSULE PO PRN (21:02)
[2022-08-02 08:00] VITALS: BP 122/73
[2022-08-02] MEDS: PRENATAL NO.137/IRON/FOLIC ACID TABLET PO SCH (08:34)
[2022-08-02] MEDS: TRIAMCINOLONE 0.1% 60 ML LOTION TP SCH ×2 (08:35→16:59)
[2022-08-02 16:44] VITALS: BP 115/67
[2022-08-02] MEDS: DiphenhydrAMINE HCL 25 MG CAPSULE PO PRN (20:00)
[2022-08-02] MEDS: HALOPERIDOL 5 MG TABLET PO SCH (21:01)
[2022-08-03 06:07] LABS: COVID AG,FIA SOURCE NASAL SWAB
[2022-08-03 08:00] VITALS: BP 102/61
[2022-08-03] MEDS: PRENATAL NO.137/IRON/FOLIC ACID TABLET PO SCH (08:45)
[2022-08-03] MEDS: TRIAMCINOLONE 0.1% 60 ML LOTION TP SCH ×2 (09:00→16:42)
[2022-08-03 16:00] VITALS: BP 122/82
[2022-08-03] MEDS: DiphenhydrAMINE HCL 25 MG CAPSULE PO PRN (19:56)
[2022-08-03 19:59] VITALS: BP 105/67
[2022-08-03] MEDS: HALOPERIDOL 5 MG TABLET PO SCH (20:12)
[2022-08-04] MEDS: PRENATAL NO.137/IRON/FOLIC ACID TABLET PO SCH (08:12)
[2022-08-04] MEDS: TRIAMCINOLONE 0.1% 60 ML LOTION TP SCH ×3 (08:12→17:37)
[2022-08-04 09:16] VITALS: BP 108/70
[2022-08-04 17:49] VITALS: BP 110/75
[2022-08-04] MEDS: DiphenhydrAMINE HCL 25 MG CAPSULE PO PRN (20:03)
[2022-08-04] MEDS: HALOPERIDOL 5 MG TABLET PO SCH (21:00)
[2022-08-05] MEDS: PRENATAL NO.137/IRON/FOLIC ACID TABLET PO SCH (08:07)
[2022-08-05] MEDS: TRIAMCINOLONE 0.1% 60 ML LOTION TP SCH ×2 (08:08→16:39)
[2022-08-05 08:09] VITALS: BP 112/66
[2022-08-05 16:03] VITALS: BP 102/62
[2022-08-05] MEDS: DiphenhydrAMINE HCL 25 MG CAPSULE PO PRN (20:04)
[2022-08-05] MEDS: HALOPERIDOL 5 MG TABLET PO SCH (20:53)
[2022-08-06] MEDS: PRENATAL NO.137/IRON/FOLIC ACID TABLET PO SCH (08:02)
[2022-08-06] MEDS: TRIAMCINOLONE 0.1% 60 ML LOTION TP SCH ×2 (08:06→16:10)
[2022-08-06 08:36] VITALS: BP 93/57
[2022-08-06] MEDS: LACTOBAC ACID/BULG/BIFID/THERM TABLET PO SCH (09:12)
[2022-08-06] MEDS: DOXYCYCLINE HYCLATE 100 MG TABLET PO SCH ×2 (09:13→16:10)
[2022-08-06 11:04] LABS: BASOPHILS % (AUTO) 0.3 % (0.0-2.0); EOSINOPHILS % (AUTO) 1.3 % (1.0-6.0); HEMATOCRIT 30.3 % (36-46); HEMOGLOBIN 10.1 g/dL (12.0-16.0); LYMPHOCYTES # (AUTO) 1.1 K/uL (1.0-4.8); LYMPHOCYTES % (AUTO) 12.7 % (22.0-44.0); MEAN CORPUSCULAR HEMOGLOBIN 31.1 pg (26.0-34.0); MEAN CORPUSCULAR HGB CONC 33.5 G/dL (31.0-37.0); MEAN CORPUSCULAR VOLUME 93 fL (80-100); MONOCYTES # (AUTO) 0.6 K/uL (0.1-1.0); MONOCYTES % (AUTO) 6.5 % (2.0-9.0); NEUTROPHILS # (AUTO) 6.9 K/uL (1.8-7.7); NEUTROPHILS % (AUTO) 79.2 % (40.0-70.0); PLATELET COUNT (AUTO) 332 K/uL (150-450); RED BLOOD CELL COUNT(AUTO) 3.26 MIL/uL (4.00-5.20); RED CELL DISTRIBUTION WIDTH 14.1 % (11.5-14.5)
[2022-08-06 11:33] LABS: HEMOGLOBIN A1C 5.2 % (3.8-5.6)
[2022-08-06 12:03] LABS: ALANINE AMINOTRANSFERASE 8 U/L (12-78); ALKALINE PHOSPHATASE 59 U/L (46-116); ANION GAP 6 mmol/L (8-16); ASPARTATE AMINOTRANSFERASE 6 U/L (15-37); BILIRUBIN,TOTAL 0.1 mg/dL (0.1-1.0); CALCIUM, TOTAL 8.6 mg/dL (8.8-10.5); CARBON DIOXIDE 23 mmol/L (22-29); CHLORIDE 103 mmol/L (98-107); CREATININE 0.46 mg/dL (0.60-1.30); GLOMERULAR FILTR. RATE CALC > 60 mL/min (>60); GLUCOSE,RANDOM 111 mg/dL (70-110); HCG,QUANTITATIVE 1754 mIU/mL (0-6); PHOSPHORUS 3.6 mg/dL (2.5-4.9); POTASSIUM 3.6 mmol/L (3.5-5.1); SODIUM SERUM 132 mmol/L (136-145); THYROID STIMULATING HORMONE 0.92 uIU/mL (0.36-3.74); UREA NITROGEN, BLOOD 7 mg/dL (7-18)
[2022-08-06 13:20] VITALS: BP 100/62
[2022-08-06 16:03] VITALS: BP 98/55
[2022-08-06] MEDS: HALOPERIDOL 5 MG TABLET PO SCH (20:04)
[2022-08-06 20:05] VITALS: BP 122/80
[2022-08-06] MEDS: DiphenhydrAMINE HCL 25 MG CAPSULE PO PRN (20:05)
[2022-08-07] MEDS: LACTOBAC ACID/BULG/BIFID/THERM TABLET PO SCH (08:02)
[2022-08-07] MEDS: PRENATAL NO.137/IRON/FOLIC ACID TABLET PO SCH (08:02)
[2022-08-07] MEDS: TRIAMCINOLONE 0.1% 60 ML LOTION TP SCH ×2 (08:02→16:07)
[2022-08-07] MEDS: DOXYCYCLINE HYCLATE 100 MG TABLET PO SCH ×2 (08:02→16:07)
[2022-08-07 08:34] VITALS: BP 105/65
[2022-08-07 11:22] VITALS: BP 110/60
[2022-08-07] MEDS: ACETAMINOPHEN 325 MG TABLET PO PRN (11:22)
[2022-08-07 12:22] VITALS: BP 107/62
[2022-08-07 16:37] VITALS: BP 101/60
[2022-08-07] MEDS ORDERED: PENICILLIN G BENZATHINE LA 2,400,000 UNITS/4 ML SYRINGE IM ONE (19:00)
[2022-08-07] MEDS: DiphenhydrAMINE HCL 25 MG CAPSULE PO PRN (19:38)
[2022-08-07] MEDS: HALOPERIDOL 5 MG TABLET PO SCH (20:24)
[2022-08-08 08:15] VITALS: BP 95/40
[2022-08-08] MEDS: PRENATAL NO.137/IRON/FOLIC ACID TABLET PO SCH (09:12)
[2022-08-08] MEDS: LACTOBAC ACID/BULG/BIFID/THERM TABLET PO SCH (09:12)
[2022-08-08] MEDS: TRIAMCINOLONE 0.1% 60 ML LOTION TP SCH ×2 (09:13→17:06)
[2022-08-08] MEDS: DOXYCYCLINE HYCLATE 100 MG TABLET PO SCH ×2 (09:13→16:46)
[2022-08-08 16:05] VITALS: BP 97/60
[2022-08-08] MEDS: DiphenhydrAMINE HCL 25 MG CAPSULE PO PRN (19:29)
[2022-08-08] MEDS: ACETAMINOPHEN 325 MG TABLET PO PRN (19:29)
[2022-08-08 19:30] VITALS: BP 104/63
[2022-08-08] MEDS: HALOPERIDOL 5 MG TABLET PO SCH (20:04)
[2022-08-09 05:07] LABS: HEPATITIS C AB (EIA) <0.1 s/co ratio (0.0-0.9); HIV 1-2 SCREEN 4TH GEN W/RFLX Non Reactive (Non Reactive)
[2022-08-09] MEDS: TRIAMCINOLONE 0.1% 60 ML LOTION TP SCH ×2 (08:06→18:23)
[2022-08-09] MEDS: DOXYCYCLINE HYCLATE 100 MG TABLET PO SCH (08:06)
[2022-08-09] MEDS: LACTOBAC ACID/BULG/BIFID/THERM TABLET PO SCH (08:06)
[2022-08-09] MEDS: PRENATAL NO.137/IRON/FOLIC ACID TABLET PO SCH (08:06)
[2022-08-09 08:21] VITALS: BP 104/57
[2022-08-09 12:07] LABS: RPR QUANT. (TITER) 1:32 (NonRea<1:1)
[2022-08-09 16:37] VITALS: BP 97/62
[2022-08-09] MEDS: CEPHALEXIN MONOHYDRATE 500 MG CAPSULE PO SCH (18:25)
[2022-08-09] MEDS: HALOPERIDOL 5 MG TABLET PO SCH (20:22)
[2022-08-09] MEDS: MetroNIDAZOLE 500 MG TABLET PO SCH (20:22)
[2022-08-10] MEDS: CEPHALEXIN MONOHYDRATE 500 MG CAPSULE PO SCH ×4 (00:12→16:44)
[2022-08-10 08:00] VITALS: BP 130/77
[2022-08-10] MEDS: TRIAMCINOLONE 0.1% 60 ML LOTION TP SCH ×2 (08:11→16:44)
[2022-08-10] MEDS: LACTOBAC ACID/BULG/BIFID/THERM TABLET PO SCH (08:11)
[2022-08-10] MEDS: PRENATAL NO.137/IRON/FOLIC ACID TABLET PO SCH (08:11)
[2022-08-10] MEDS: MetroNIDAZOLE 500 MG TABLET PO SCH ×2 (08:11→20:29)
[2022-08-10 09:10] LABS: COVID AG,FIA SOURCE NASAL SWAB
[2022-08-10 16:30] VITALS: BP 109/71
[2022-08-10] MEDS: HALOPERIDOL 5 MG TABLET PO SCH (20:29)
[2022-08-10] MEDS: DiphenhydrAMINE HCL 25 MG CAPSULE PO PRN (20:30)
[2022-08-11] MEDS: CEPHALEXIN MONOHYDRATE 500 MG CAPSULE PO SCH ×6 (06:00→23:32)
[2022-08-11] MEDS: MetroNIDAZOLE 500 MG TABLET PO SCH ×3 (08:17→20:43)
[2022-08-11] MEDS: LACTOBAC ACID/BULG/BIFID/THERM TABLET PO SCH ×2 (08:17→08:24)
[2022-08-11] MEDS: PRENATAL NO.137/IRON/FOLIC ACID TABLET PO SCH (08:18)
[2022-08-11] MEDS: TRIAMCINOLONE 0.1% 60 ML LOTION TP SCH ×2 (08:20→16:50)
[2022-08-11 08:30] VITALS: BP 144/96
[2022-08-11 17:16] VITALS: BP 106/61
[2022-08-11] MEDS: DiphenhydrAMINE HCL 25 MG CAPSULE PO PRN (20:46)
[2022-08-11] MEDS: HALOPERIDOL 5 MG TABLET PO SCH (20:55)
[2022-08-12] MEDS: CEPHALEXIN MONOHYDRATE 500 MG CAPSULE PO SCH ×3 (06:00→17:03)
[2022-08-12] MEDS: PRENATAL NO.137/IRON/FOLIC ACID TABLET PO SCH (08:12)
[2022-08-12] MEDS: TRIAMCINOLONE 0.1% 60 ML LOTION TP SCH ×2 (08:12→17:03)
[2022-08-12] MEDS: LACTOBAC ACID/BULG/BIFID/THERM TABLET PO SCH (08:13)
[2022-08-12] MEDS: MetroNIDAZOLE 500 MG TABLET PO SCH ×2 (08:13→21:00)
[2022-08-12 10:23] VITALS: BP 128/66
[2022-08-12 17:06] VITALS: BP 99/68
[2022-08-12] MEDS: HALOPERIDOL 5 MG TABLET PO SCH (21:00)
[2022-08-12] MEDS: DiphenhydrAMINE HCL 25 MG CAPSULE PO PRN (21:04)
[2022-08-13] MEDS: CEPHALEXIN MONOHYDRATE 500 MG CAPSULE PO SCH ×3 (05:58→11:33)
[2022-08-13] MEDS: MetroNIDAZOLE 500 MG TABLET PO SCH ×2 (08:39→20:34)
[2022-08-13] MEDS: LACTOBAC ACID/BULG/BIFID/THERM TABLET PO SCH (08:39)
[2022-08-13] MEDS: PRENATAL NO.137/IRON/FOLIC ACID TABLET PO SCH (08:39)
[2022-08-13] MEDS: TRIAMCINOLONE 0.1% 60 ML LOTION TP SCH ×3 (08:40→17:00)
[2022-08-13 09:07] LABS: HERPES SIMPLEX VIRUS-1 BY PCR Negative (Negative); HERPES SIMPLEX VIRUS-2 BY PCR Negative (Negative)
[2022-08-13] MEDS: DiphenhydrAMINE HCL 25 MG CAPSULE PO PRN ×2 (12:07→20:36)
[2022-08-13 16:19] VITALS: BP 125/64
[2022-08-13] MEDS: HALOPERIDOL 5 MG TABLET PO SCH (20:35)
[2022-08-14 08:28] VITALS: BP 105/60
[2022-08-14] MEDS: LACTOBAC ACID/BULG/BIFID/THERM TABLET PO SCH (09:00)
[2022-08-14] MEDS ORDERED: PENICILLIN G BENZATHINE LA 2,400,000 UNITS/4 ML SYRINGE IM ONE (09:00)
[2022-08-14] MEDS: TRIAMCINOLONE 0.1% 60 ML LOTION TP SCH ×2 (09:00→16:39)
[2022-08-14] MEDS: MetroNIDAZOLE 500 MG TABLET PO SCH ×2 (09:00→20:16)
[2022-08-14] MEDS: PRENATAL NO.137/IRON/FOLIC ACID TABLET PO SCH (09:35)
[2022-08-14] MEDS: DiphenhydrAMINE HCL 25 MG CAPSULE PO PRN ×2 (11:39→19:41)
[2022-08-14 19:41] VITALS: BP 115/63
[2022-08-14] MEDS: HALOPERIDOL 5 MG TABLET PO SCH (20:16)
[2022-08-15] MEDS: PRENATAL NO.137/IRON/FOLIC ACID TABLET PO SCH (08:50)
[2022-08-15] MEDS: MetroNIDAZOLE 500 MG TABLET PO SCH ×2 (08:52→21:00)
[2022-08-15] MEDS: LACTOBAC ACID/BULG/BIFID/THERM TABLET PO SCH (08:52)
[2022-08-15] MEDS: TRIAMCINOLONE 0.1% 60 ML LOTION TP SCH ×2 (09:00→16:14)
[2022-08-15] MEDS: HALOPERIDOL 5 MG TABLET PO SCH (21:00)
[2022-08-15] MEDS: DiphenhydrAMINE HCL 25 MG CAPSULE PO PRN (22:15)
[2022-08-16] MEDS: LACTOBAC ACID/BULG/BIFID/THERM TABLET PO SCH (09:00)
[2022-08-16] MEDS: TRIAMCINOLONE 0.1% 60 ML LOTION TP SCH ×2 (09:00→17:00)
[2022-08-16] MEDS: MetroNIDAZOLE 500 MG TABLET PO SCH (09:00)
[2022-08-16] MEDS: PRENATAL NO.137/IRON/FOLIC ACID TABLET PO SCH (10:36)
[2022-08-16] MEDS ORDERED: TUBERCULIN, PURIFIED PROTEIN DERIVATIVE 5 TU/0.1 ML SYRINGE ID ONE (13:45)
[2022-08-16] MEDS ORDERED: LORazepam 2 MG/ML VIAL IM ONE (20:00)
[2022-08-16] MEDS ORDERED: ChlorproMAZINE HCL 50 MG/2 ML AMP IM ONE (20:00)
[2022-08-16] MEDS: HALOPERIDOL 5 MG TABLET PO SCH (20:21)
[2022-08-17] MEDS: TRIAMCINOLONE 0.1% 60 ML LOTION TP SCH ×2 (08:50→16:29)
[2022-08-17] MEDS: LACTOBAC ACID/BULG/BIFID/THERM TABLET PO SCH (08:50)
[2022-08-17] MEDS: PRENATAL NO.137/IRON/FOLIC ACID TABLET PO SCH (10:26)
[2022-08-17] MEDS ORDERED: CEPHALEXIN MONOHYDRATE 500 MG CAPSULE PO SCH ×2 (20:30→22:30)
[2022-08-17] MEDS ORDERED: MICONAZOLE NITRATE 2% 45 GM VAGINAL CREAM VG SCH (20:30)
[2022-08-17] MEDS: HALOPERIDOL 5 MG TABLET PO SCH (21:00)
[2022-08-17] MEDS: MetroNIDAZOLE 500 MG TABLET PO SCH (21:19)
[2022-08-17] MEDS: DiphenhydrAMINE HCL 25 MG CAPSULE PO PRN (22:23)
[2022-08-18] MEDS: CEPHALEXIN MONOHYDRATE 500 MG CAPSULE PO SCH ×3 (06:10→18:04)
[2022-08-18 06:47] LABS: COVID AG,FIA SOURCE NASAL SWAB
[2022-08-18 08:00] VITALS: BP 100/73
[2022-08-18] MEDS: TRIAMCINOLONE 0.1% 60 ML LOTION TP SCH ×2 (08:09→16:13)
[2022-08-18] MEDS: PRENATAL NO.137/IRON/FOLIC ACID TABLET PO SCH (08:09)
[2022-08-18] MEDS: LACTOBAC ACID/BULG/BIFID/THERM TABLET PO SCH (08:10)
[2022-08-18] MEDS: MetroNIDAZOLE 500 MG TABLET PO SCH ×2 (08:10→20:11)
[2022-08-18] MEDS: MICONAZOLE NITRATE 2% 45 GM VAGINAL CREAM VG SCH (08:13)
[2022-08-18] MEDS: DiphenhydrAMINE HCL 25 MG CAPSULE PO PRN (08:14)
[2022-08-18] MEDS: HALOPERIDOL 5 MG TABLET PO SCH (21:00)
[2022-08-19] MEDS: CEPHALEXIN MONOHYDRATE 500 MG CAPSULE PO SCH ×4 (05:40→17:41)
[2022-08-19] MEDS: MetroNIDAZOLE 500 MG TABLET PO SCH ×2 (08:57→20:32)
[2022-08-19] MEDS: LACTOBAC ACID/BULG/BIFID/THERM TABLET PO SCH (08:57)
[2022-08-19] MEDS: PRENATAL NO.137/IRON/FOLIC ACID TABLET PO SCH (08:57)
[2022-08-19] MEDS: MICONAZOLE NITRATE 2% 45 GM VAGINAL CREAM VG SCH (09:03)
[2022-08-19] MEDS: TRIAMCINOLONE 0.1% 60 ML LOTION TP SCH ×2 (09:04→17:00)
[2022-08-19 09:11] VITALS: BP 120/69
[2022-08-19] MEDS: HALOPERIDOL 5 MG TABLET PO SCH (20:32)
[2022-08-20] MEDS: CEPHALEXIN MONOHYDRATE 500 MG CAPSULE PO SCH ×5 (00:23→23:31)
[2022-08-20] MEDS: MetroNIDAZOLE 500 MG TABLET PO SCH ×2 (08:06→20:06)
[2022-08-20] MEDS: PRENATAL NO.137/IRON/FOLIC ACID TABLET PO SCH (08:06)
[2022-08-20] MEDS: LACTOBAC ACID/BULG/BIFID/THERM TABLET PO SCH (08:06)
[2022-08-20] MEDS: MICONAZOLE NITRATE 2% 45 GM VAGINAL CREAM VG SCH (08:10)
[2022-08-20] MEDS: TRIAMCINOLONE 0.1% 60 ML LOTION TP SCH ×2 (09:00→17:00)
[2022-08-20 09:21] VITALS: BP 117/72
[2022-08-20] MEDS: HALOPERIDOL 5 MG TABLET PO SCH (20:06)
[2022-08-21] MEDS: CEPHALEXIN MONOHYDRATE 500 MG CAPSULE PO SCH ×4 (06:32→23:31)
[2022-08-21] MEDS: MICONAZOLE NITRATE 2% 45 GM VAGINAL CREAM VG SCH (09:00)
[2022-08-21] MEDS: TRIAMCINOLONE 0.1% 60 ML LOTION TP SCH ×2 (09:00→17:00)
[2022-08-21] MEDS: MetroNIDAZOLE 500 MG TABLET PO SCH ×2 (10:26→20:03)
[2022-08-21] MEDS: LACTOBAC ACID/BULG/BIFID/THERM TABLET PO SCH (10:26)
[2022-08-21] MEDS: PRENATAL NO.137/IRON/FOLIC ACID TABLET PO SCH (10:26)
[2022-08-21] MEDS: DiphenhydrAMINE HCL 25 MG CAPSULE PO PRN ×2 (10:27→20:44)
[2022-08-21] MEDS: HALOPERIDOL 5 MG TABLET PO SCH (20:03)
[2022-08-22] MEDS: CEPHALEXIN MONOHYDRATE 500 MG CAPSULE PO SCH ×3 (06:29→17:32)
[2022-08-22 08:00] VITALS: BP 118/78
[2022-08-22] MEDS: MetroNIDAZOLE 500 MG TABLET PO SCH ×2 (08:36→20:13)
[2022-08-22] MEDS: DiphenhydrAMINE HCL 25 MG CAPSULE PO PRN ×2 (08:36→17:32)
[2022-08-22] MEDS: PRENATAL NO.137/IRON/FOLIC ACID TABLET PO SCH (08:36)
[2022-08-22] MEDS: LACTOBAC ACID/BULG/BIFID/THERM TABLET PO SCH (08:36)
[2022-08-22] MEDS: MICONAZOLE NITRATE 2% 45 GM VAGINAL CREAM VG SCH (09:00)
[2022-08-22] MEDS: TRIAMCINOLONE 0.1% 60 ML LOTION TP SCH ×2 (09:00→17:00)
[2022-08-22 17:03] VITALS: BP 112/71
[2022-08-22] MEDS: HALOPERIDOL 5 MG TABLET PO SCH (20:14)
[2022-08-23] MEDS: CEPHALEXIN MONOHYDRATE 500 MG CAPSULE PO SCH (00:22)
[2022-08-23] MEDS: LACTOBAC ACID/BULG/BIFID/THERM TABLET PO SCH (08:07)
[2022-08-23] MEDS: MetroNIDAZOLE 500 MG TABLET PO SCH ×2 (08:07→20:51)
[2022-08-23] MEDS: PRENATAL NO.137/IRON/FOLIC ACID TABLET PO SCH (08:07)
[2022-08-23] MEDS: TRIAMCINOLONE 0.1% 60 ML LOTION TP SCH ×2 (08:08→17:27)
[2022-08-23] MEDS: MICONAZOLE NITRATE 2% 45 GM VAGINAL CREAM VG SCH (08:10)
[2022-08-23 08:18] VITALS: BP 101/44
[2022-08-23] MEDS: HALOPERIDOL 5 MG TABLET PO SCH (20:51)
[2022-08-24] MEDS: TRIAMCINOLONE 0.1% 60 ML LOTION TP SCH ×2 (09:54→17:32)
[2022-08-24] MEDS: PRENATAL NO.137/IRON/FOLIC ACID TABLET PO SCH (09:54)
[2022-08-24] MEDS: MetroNIDAZOLE 500 MG TABLET PO SCH (09:54)
[2022-08-24] MEDS: LACTOBAC ACID/BULG/BIFID/THERM TABLET PO SCH (09:54)
[2022-08-24] MEDS: MICONAZOLE NITRATE 2% 45 GM VAGINAL CREAM VG SCH (09:55)
[2022-08-24] MEDS: HALOPERIDOL 5 MG TABLET PO SCH (20:47)
[2022-08-25] MEDS: PRENATAL NO.137/IRON/FOLIC ACID TABLET PO SCH (08:35)
[2022-08-25] MEDS: LACTOBAC ACID/BULG/BIFID/THERM TABLET PO SCH (08:35)
[2022-08-25] MEDS: TRIAMCINOLONE 0.1% 60 ML LOTION TP SCH ×2 (08:35→16:45)
[2022-08-25] MEDS: HALOPERIDOL 5 MG TABLET PO SCH (20:10)
[2022-08-26 08:00] VITALS: BP 129/66
[2022-08-26] MEDS: PRENATAL NO.137/IRON/FOLIC ACID TABLET PO SCH (08:32)
[2022-08-26] MEDS: LACTOBAC ACID/BULG/BIFID/THERM TABLET PO SCH (08:32)
[2022-08-26] MEDS: TRIAMCINOLONE 0.1% 60 ML LOTION TP SCH ×2 (08:32→16:18)
[2022-08-26] MEDS: DOCUSATE SODIUM 100 MG CAPSULE PO PRN (08:34)
[2022-08-26 11:10] VITALS: BP 136/67
[2022-08-26] MEDS: ACETAMINOPHEN 325 MG TABLET PO PRN (11:10)
[2022-08-26 16:33] VITALS: BP 134/79
[2022-08-26] MEDS: HALOPERIDOL 5 MG TABLET PO SCH (20:10)
[2022-08-26] MEDS: DiphenhydrAMINE HCL 25 MG CAPSULE PO PRN (20:49)
[2022-08-27 06:47] LABS: COVID AG,FIA SOURCE NASAL SWAB
[2022-08-27] MEDS: PRENATAL NO.137/IRON/FOLIC ACID TABLET PO SCH (08:03)
[2022-08-27] MEDS: LACTOBAC ACID/BULG/BIFID/THERM TABLET PO SCH (08:03)
[2022-08-27] MEDS: TRIAMCINOLONE 0.1% 60 ML LOTION TP SCH ×2 (08:05→17:15)
[2022-08-27 08:16] VITALS: BP 141/72
[2022-08-27] MEDS: HALOPERIDOL 5 MG TABLET PO SCH (20:12)
[2022-08-28] MEDS: LACTOBAC ACID/BULG/BIFID/THERM TABLET PO SCH (08:35)
[2022-08-28] MEDS: TRIAMCINOLONE 0.1% 60 ML LOTION TP SCH ×2 (08:35→16:33)
[2022-08-28] MEDS: PRENATAL NO.137/IRON/FOLIC ACID TABLET PO SCH (08:35)
[2022-08-28 13:23] VITALS: BP 78/126
[2022-08-28] MEDS: ACETAMINOPHEN 325 MG TABLET PO PRN (13:23)
[2022-08-28 16:09] VITALS: BP 123/81
[2022-08-28] MEDS: HALOPERIDOL 5 MG TABLET PO SCH (20:55)
[2022-08-29] MEDS: PRENATAL NO.137/IRON/FOLIC ACID TABLET PO SCH (10:00)
[2022-08-29 10:01] VITALS: BP 103/67
[2022-08-29] MEDS: TRIAMCINOLONE 0.1% 60 ML LOTION TP SCH ×2 (10:01→17:00)
[2022-08-29] MEDS: LACTOBAC ACID/BULG/BIFID/THERM TABLET PO SCH (10:01)
[2022-08-29] MEDS: DiphenhydrAMINE HCL 25 MG CAPSULE PO PRN (19:52)
[2022-08-29] MEDS: HALOPERIDOL 5 MG TABLET PO SCH (20:22)
[2022-08-30] MEDS: DOCUSATE SODIUM 100 MG CAPSULE PO PRN (07:08)
[2022-08-30] MEDS: LACTOBAC ACID/BULG/BIFID/THERM TABLET PO SCH (08:52)
[2022-08-30] MEDS: TRIAMCINOLONE 0.1% 60 ML LOTION TP SCH ×2 (08:52→16:56)
[2022-08-30] MEDS: PRENATAL NO.137/IRON/FOLIC ACID TABLET PO SCH (08:52)
[2022-08-30] MEDS: DiphenhydrAMINE HCL 25 MG CAPSULE PO PRN (20:20)
[2022-08-30] MEDS: HALOPERIDOL 5 MG TABLET PO SCH (20:38)
[2022-08-31] MEDS: DOCUSATE SODIUM 100 MG CAPSULE PO PRN (05:43)
[2022-08-31] MEDS: TRIAMCINOLONE 0.1% 60 ML LOTION TP SCH ×2 (08:32→16:33)
[2022-08-31] MEDS: PRENATAL NO.137/IRON/FOLIC ACID TABLET PO SCH (08:32)
[2022-08-31] MEDS: LACTOBAC ACID/BULG/BIFID/THERM TABLET PO SCH (08:32)
[2022-08-31 09:00] VITALS: BP 106/60
[2022-08-31] MEDS ORDERED: TUBERCULIN, PURIFIED PROTEIN DERIVATIVE 5 TU/0.1 ML SYRINGE ID ONE (17:00)
[2022-08-31] MEDS ORDERED: HALO5TAB23 PO (17:49)
[2022-08-31] MEDS: HALOPERIDOL 5 MG TABLET PO SCH (20:37)
[2022-08-31] MEDS: ACETAMINOPHEN 325 MG TABLET PO PRN (21:21)
[2022-08-31 21:22] VITALS: BP 115/63
[2022-08-31] MEDS: DiphenhydrAMINE HCL 25 MG CAPSULE PO PRN (21:26)
[2022-09-01 05:50] LABS: BASOPHILS % (AUTO) 0.6 % (0.0-2.0); EOSINOPHILS % (AUTO) 3.5 % (1.0-6.0); HEMATOCRIT 34.5 % (36-46); HEMOGLOBIN 11.7 g/dL (12.0-16.0); LYMPHOCYTES % (AUTO) 28.1 % (22.0-44.0); MEAN CORPUSCULAR HEMOGLOBIN 31.7 pg (26.0-34.0); MEAN CORPUSCULAR HGB CONC 33.9 G/dL (31.0-37.0); MEAN CORPUSCULAR VOLUME 94 fL (80-100); MONOCYTES # (AUTO) 0.5 K/uL (0.1-1.0); MONOCYTES % (AUTO) 7.2 % (2.0-9.0); NEUTROPHILS # (AUTO) 4.3 K/uL (1.8-7.7); NEUTROPHILS % (AUTO) 60.6 % (40.0-70.0); PLATELET COUNT (AUTO) 275 K/uL (150-450); RED BLOOD CELL COUNT(AUTO) 3.69 MIL/uL (4.00-5.20); RED CELL DISTRIBUTION WIDTH 14.4 % (11.5-14.5)
[2022-09-01 06:06] LABS: ALANINE AMINOTRANSFERASE 15 U/L (12-78); ALBUMIN 2.4 g/dL (3.4-5.0); ALKALINE PHOSPHATASE 61 U/L (46-116); ANION GAP 4 mmol/L (8-16); ASPARTATE AMINOTRANSFERASE 13 U/L (15-37); BILIRUBIN,TOTAL 0.1 mg/dL (0.1-1.0); CALCIUM, TOTAL 8.7 mg/dL (8.8-10.5); CARBON DIOXIDE 27 mmol/L (22-29); CHLORIDE 103 mmol/L (98-107); CREATININE 0.58 mg/dL (0.60-1.30); GLUCOSE,RANDOM 88 mg/dL (70-110); POTASSIUM 3.9 mmol/L (3.5-5.1); SODIUM SERUM 134 mmol/L (136-145); TOTAL PROTEIN, SERUM 6.3 g/dL (6.4-8.2); UREA NITROGEN, BLOOD 7 mg/dL (7-18)
[2022-09-01 06:22] LABS: GLOMERULAR FILTR. RATE CALC > 60 mL/min (>60)
[2022-09-01] MEDS: LACTOBAC ACID/BULG/BIFID/THERM TABLET PO SCH (08:28)
[2022-09-01] MEDS: TRIAMCINOLONE 0.1% 60 ML LOTION TP SCH ×2 (08:28→16:22)
[2022-09-01] MEDS: PRENATAL NO.137/IRON/FOLIC ACID TABLET PO SCH (08:28)
[2022-09-01] MEDS: DiphenhydrAMINE HCL 25 MG CAPSULE PO PRN (20:20)
[2022-09-01] MEDS: HALOPERIDOL 5 MG TABLET PO SCH (20:42)
[2022-09-02] MEDS: LACTOBAC ACID/BULG/BIFID/THERM TABLET PO SCH (08:24)
[2022-09-02] MEDS: PRENATAL NO.137/IRON/FOLIC ACID TABLET PO SCH (08:24)
[2022-09-02] MEDS: DOCUSATE SODIUM 100 MG CAPSULE PO PRN (08:25)
[2022-09-02] MEDS: TRIAMCINOLONE 0.1% 60 ML LOTION TP SCH ×2 (08:25→16:33)
[2022-09-02] MEDS: ACETAMINOPHEN 325 MG TABLET PO PRN (18:13)
[2022-09-02] MEDS: HALOPERIDOL 5 MG TABLET PO SCH (20:20)
[2022-09-03] MEDS: PRENATAL NO.137/IRON/FOLIC ACID TABLET PO SCH (09:10)
[2022-09-03] MEDS: LACTOBAC ACID/BULG/BIFID/THERM TABLET PO SCH (09:10)
[2022-09-03] MEDS: TRIAMCINOLONE 0.1% 60 ML LOTION TP SCH ×2 (09:10→16:03)
[2022-09-03] MEDS: ACETAMINOPHEN 325 MG TABLET PO PRN (10:17)
[2022-09-03] MEDS: DOCUSATE SODIUM 100 MG CAPSULE PO PRN (10:17)
[2022-09-03] MEDS: DiphenhydrAMINE HCL 25 MG CAPSULE PO PRN (18:39)
[2022-09-03 18:54] LABS: COVID AG,FIA SOURCE NASAL SWAB
[2022-09-03] MEDS: HALOPERIDOL 5 MG TABLET PO SCH (20:12)
[2022-09-04] MEDS: PRENATAL NO.137/IRON/FOLIC ACID TABLET PO SCH (09:15)
[2022-09-04] MEDS: LACTOBAC ACID/BULG/BIFID/THERM TABLET PO SCH (09:15)
[2022-09-04] MEDS: TRIAMCINOLONE 0.1% 60 ML LOTION TP SCH ×2 (09:16→17:10)
[2022-09-04] MEDS: ACETAMINOPHEN 325 MG TABLET PO PRN (11:37)
[2022-09-04] MEDS: DOCUSATE SODIUM 100 MG CAPSULE PO PRN (11:37)
[2022-09-04] MEDS ORDERED: TRIA60LO16 TP (18:08)
[2022-09-04] MEDS ORDERED: ACID1TAB13 PO (18:09)
[2022-09-04] MEDS ORDERED: PREN-217 PO (18:10)
[2022-09-04] MEDS: HALOPERIDOL 5 MG TABLET PO SCH (20:37)
[2022-09-05 07:49] LABS: COVID AG,FIA SOURCE NASAL SWAB
[2022-09-05] MEDS: LACTOBAC ACID/BULG/BIFID/THERM TABLET PO SCH (09:04)
[2022-09-05] MEDS: PRENATAL NO.137/IRON/FOLIC ACID TABLET PO SCH (09:04)
[2022-09-05] MEDS: TRIAMCINOLONE 0.1% 60 ML LOTION TP SCH (09:04)
[2022-09-07 09:03] LABS: TREPONEMA PALLIDUM ABS-REFLAB Reactive (Non Reactive)
[2022-10-20] MEDS ORDERED: ACYCLOVIR 200 MG CAPSULE PO SCH (09:00)
[2022-10-21] MEDS ORDERED: ACYCLOVIR 200 MG CAPSULE PO SCH (09:00)
[2022-10-22] MEDS ORDERED: ACYCLOVIR 200 MG CAPSULE PO SCH (09:00)
[2022-10-23] MEDS ORDERED: ACYCLOVIR 200 MG CAPSULE PO SCH (09:00)
[2022-10-24] MEDS ORDERED: ACYCLOVIR 200 MG CAPSULE PO SCH (09:00)
== END 2022-09-05 10:04 | DRG 566 ==
LOC: EMS 15:33 → 3EC 21:37
PROVIDERS: ADMIT Psychiatry & Neurology Psychiatry; ATTEND Psychiatry & Neurology Psychiatry
DX: O99.343 Other mental disorders complicating pregnancy, third trimester (principal); A53.0 Latent syphilis, unspecified as early or late; O98.113 Syphilis complicating pregnancy, third trimester; O16.3 Unspecified maternal hypertension, third trimester; A59.9 Trichomoniasis, unspecified; F20.9 Schizophrenia, unspecified; Z20.822 Contact with and (suspected) exposure to COVID-19; F31.9 Bipolar disorder, unspecified; F41.9 Anxiety disorder, unspecified; G47.00 Insomnia, unspecified; I10 Essential (primary) hypertension; K59.00 Constipation, unspecified; O98.313 Other infections with a predominantly sexual mode of transmission complicating pregnancy, third trimester; O99.353 Diseases of the nervous system complicating pregnancy, third trimester; Z33.1 Pregnant state, incidental; F17.210 Nicotine dependence, cigarettes, uncomplicated; Z88.8 Allergy status to other drugs, medicaments and biological substances; Z3A.25 25 weeks gestation of pregnancy
CPT/HCPCS: 76811; 80053; 80074; 81001; 83036; 83735; 84100; 84443; 84702; 84703; 85025; 86592; 86593; 86695; 86696; 86780; 87081; 87086; 87389; 87529; 90732; 93005; 99285; J0561; J2060; J3230